=== PATIENT | female | born 1990 | race Caucasian/White ===

== ENCOUNTER 2022-11-10 12:43 | Outpatient (CLI) | payer BC, SELFPAY ==
--- NOTE | 2022-11-10 13:00 | CRLHL7_ITS ---
For Patients: As a result of the Cures Act, medical imaging exams and procedure reports are released immediately into your electronic medical record. You may view this report before your referring provider. If you have questions, please contact your health care provider. INDICATION: First trimester scan, establish dates. COMPARISON: None. TECHNIQUE: Real-time mo-scale imaging of the pelvis was performed. FINDINGS: Sonographic imaging demonstrates a single living intrauterine gestation. The embryo demonstrates a regular cardiac rate measuring 171 beats per minute. The embryo`s crown-rump length measurement of 3.1 cm corresponds to a gestational age of 9 weeks 6 days with a sonographic due date of 06.09.23. There is a normal-appearing yolk sac. There are no gross abnormalities noted within the embryo at this early state of development. The gestational sac has a normal appearance. There is no evidence of a perigestational hemorrhage. The amount of fluid within the sac appears appropriate for gestational age. The cervix is closed. The myometrium appears normal. The ovaries are of normal size. Corpus luteal cyst left ovary. There are no suspicious fluid collections noted in the cul-de-sac. IMPRESSION: Normal first trimester OB ultrasound exam. Gestational age calculated at 9 weeks 6 days with a sonographic due date of 06/09/2023. Dictated by Cash Cooper MD @ 11/10/2022 3:25:06 PM (Electronically Signed)
== END 2022-11-10 12:44 | disposition home or self-care (01) ==
LOC: US 12:43
PROVIDERS: PCP Family Medicine; Visit Provider Registered Nurse
DX: Z34.91 Encounter for supervision of normal pregnancy, unspecified, first trimester (principal); Z3A.09 9 weeks gestation of pregnancy
CPT/HCPCS: 76817; 86592; 86703; 86762; 86787; 86803; 86850; 86900; 86901; 87086; 87340; 87491; 87591

== ENCOUNTER 2023-01-26 08:02 | Outpatient (CLI) | payer BC, SELFPAY ==
--- NOTE | 2023-01-26 08:00 | CRLHL7_ITS ---
For Patients: As a result of the Century Cures Act, medical imaging exams and procedure reports are released immediately into your electronic medical record. You may view this report before your referring provider. If you have questions, please contact your health care provider. INDICATION: Evaluate anatomy. COMPARISON: 11/10/2022 TECHNIQUE: Real time mo scale imaging of the fetus was performed as well as color Doppler analysis of the umbilical vessels. FINDINGS: Sonographic imaging demonstrates a single living intrauterine gestation. Fetus demonstrates a regular cardiac rate of 138 beats per minute. Fetus has a breech position. The placenta lies posteriorly without evidence of placenta previa. The placental edge is located 6.8 cm from the internal cervical os. Amniotic fluid volume appears normal. Single deepest vertical pocket: 3.3 cm. The cervix is closed and measures 4.0 cm in length. The composite ultrasound gestational age is calculated at 20 weeks 2 days with an estimated sonographic due date of 06/13/2023. The estimated weight is 353 grams which lies at the 37th %. The following biometric measurements were obtained: Biparietal diameter: 4.5 cm/19 weeks 4 days 14th% Head circumference: 17.3 cm/19 weeks 6 days 14th% Abdominal circumference: 15.4 cm/20 weeks 4 days 43rd% Femur length: 3.3 cm/20 weeks 3 days 38th% The HC/AC ratio measures: 1.13 range (1.07-1.25) On anatomic survey, there is a normal appearance of the cerebral ventricles, cisterna magna and cerebellum. The cavum septum pellucidum is likely normal although there may be an et vergae variant. A small amount of fluid adjacent to the interhemispheric falx may be present which is considered indeterminate. The nose, lips, and facial profile appear normal. The cervical, thoracic and lumbar spine are well visualized and appear normal. There is a normal four-chamber heart view and the left and right ventricular outflow tracts appear normal. The diaphragm and stomach appear normal. The bladder is normal. Bilateral pelviectasis noted measuring 4.6 millimeters the left and 4.1 millimeters on the right. There is a normal three-vessel cord and cord insertion site. The four extremities appear normal. IMPRESSION: Normal OB ultrasound exam with concordance of clinical and sonographic dating. Mild bilateral renal pelviectasis measuring 4.6 millimeters and 4.1 millimeters. Possible fluid about the intrahemispheric fissure, indeterminate. Maternal medicine consult recommended. Remainder of the anatomic survey unremarkable. Dictated by Cash Cooper MD @ 01/26/2023 11:18:11 AM (Electronically Signed)
== END 2023-01-26 08:03 | disposition home or self-care (01) ==
LOC: US 08:03
PROVIDERS: PCP Family Medicine; Visit Provider Registered Nurse
DX: Z34.92 Encounter for supervision of normal pregnancy, unspecified, second trimester (principal); Z3A.19 19 weeks gestation of pregnancy
CPT/HCPCS: 76805

== ENCOUNTER 2023-01-31 14:09 | Outpatient (CLI) | payer BC, SELFPAY | END 2023-01-31 14:10 | disposition home or self-care (01) | PROVIDERS: PCP Family Medicine; Visit Provider Pediatrics Neonatal-Perinatal Medicine | DX: Z34.92 Encounter for supervision of normal pregnancy, unspecified, second trimester (principal); Z3A.21 21 weeks gestation of pregnancy | CPT/HCPCS: 76816 ==

== ENCOUNTER 2023-04-02 11:11 | Outpatient (CLI) | payer BC, SELFPAY ==
--- NOTE | 2023-04-02 11:00 | CRLHL7_ITS ---
For Patients: As a result of the Cures Act, medical imaging exams and procedure reports are released immediately into your electronic medical record. You may view this report before your referring provider. If you have questions, please contact your health care provider. INDICATION: MEASURING SMALL FOR DATES TECHNIQUE: Real time mo scale imaging of the fetus was performed as well as color Doppler and spectral Doppler analysis of the umbilical artery. COMPARISON: 03/02/2023 FINDINGS: Sonographic imaging demonstrates a single living intrauterine gestation. Fetus demonstrates a regular cardiac rate of 134 beats per minute. Fetus has a vertex position. The placenta lies fundal/posterior. Amniotic fluid volume appears normal and there is a single deepest pocket of 4.5 cm. The estimated weight is 1186gm which lies at the less than 3rd %.On the prior OB ultrasound dated 01/26/2023 the estimated weight was at the 37th percentile. BPD less than 3rd percentile. HC 3rd percentile. AC 14th percentile. FL less than 3rd percentile. There is adequate diastolic blood flow within the umbilical artery. The S/D ratio measures 2.7. The fetus was active. Absent breathing movements. There was normal flexion and extension of the trunk and extremities. IMPRESSION: Biophysical profile 03/29. Sonographic gestational age 28 weeks 2 days and sonographic due date 06/23/2023. Sonographic age is 12 days behind the clinical age. Estimated weight less than 3rd percentile. Abdominal circumference 14th percentile. BPD and FL less than 3rd percentile. HC 3rd percentile. Dictated by Cash Cooper MD @ 04/02/2023 12:42:03 PM (Electronically Signed)
== END 2023-04-02 11:12 | disposition home or self-care (01) ==
PROVIDERS: PCP Family Medicine; Visit Provider Obstetrics & Gynecology
DX: O36.5930 Maternal care for other known or suspected poor fetal growth, third trimester, not applicable or unspecified (principal); Z3A.28 28 weeks gestation of pregnancy
CPT/HCPCS: 76816; 76819; 76820; 82951; 82952

== ENCOUNTER 2023-04-16 13:53 | Outpatient (CLI) | payer BC, SELFPAY ==
--- NOTE | 2023-04-16 14:00 | CRLHL7_ITS ---
For Patients: As a result of the Century Cures Act, medical imaging exams and procedure reports are released immediately into your electronic medical record. You may view this report before your referring provider. If you have questions, please contact your health care provider. INDICATION: Small for gestational age COMPARISON: 04/02/2023 TECHNIQUE: Real time mo scale imaging of the fetus was performed as well as color Doppler and spectral Doppler analysis of the umbilical artery. Without non-stress testing. FINDINGS: Sonographic imaging demonstrates a single living intrauterine gestation. Fetus demonstrates a regular cardiac rate of 139 beats per minute. Fetus has a vertex position. The umbilical artery demonstrates adequate diastolic blood flow. The S/D ratio measures 2.7. The amniotic fluid volume appears normal and there is a single deepest pocket measurement of 4.5 cm. The fetus was active and demonstrated normal breathing movements. There was normal flexion and extension of the trunk and extremities. IMPRESSION: Normal biophysical profile score of 8 out of 8. Dictated by Cash Cooper MD @ 04/17/2023 10:58:47 AM (Electronically Signed)
== END 2023-04-16 13:54 | disposition home or self-care (01) ==
PROVIDERS: PCP Family Medicine; Visit Provider Obstetrics & Gynecology
DX: O36.5990 Maternal care for other known or suspected poor fetal growth, unspecified trimester, not applicable or unspecified (principal)
CPT/HCPCS: 76819; 76820

== ENCOUNTER 2023-04-19 15:51 | Outpatient (CLI) | payer BC, SELFPAY ==
--- NOTE | 2023-04-19 15:47 | CRLHL7_ITS ---
For Patients: As a result of the Cures Act, medical imaging exams and procedure reports are released immediately into your electronic medical record. You may view this report before your referring provider. If you have questions, please contact your health care provider. INDICATION: Small for gestational age. Failed nonstress test. COMPARISON: Biophysical profile from 04/16/2023. FINDINGS: Transabdominal examination of the is performed. A single intrauterine gestation is seen in cephalic presentation with regular cardiac activity at 144 beats per minute. The placenta is posterior and is free of the cervical os. The placental grade is I and the amniotic fluid volume is normal. The DVP is normal at 4.0 cm, not significantly changed from the previous study. The biophysical profile score is 8/8 with no points off. The umbilical artery Doppler ratio is normal at 2.9. IMPRESSION: Single intrauterine gestation in cephalic presentation with regular cardiac activity. Normal DVP at 4.0 cm, unchanged from the previous study. Normal biophysical profile score of 8/8. Dictated by Landon Beal MD @ 04/19/2023 5:08:48 PM (Electronically Signed)
== END 2023-04-19 15:52 | disposition home or self-care (01) ==
LOC: US 15:52
PROVIDERS: PCP Family Medicine; Visit Provider Obstetrics & Gynecology
DX: O36.5930 Maternal care for other known or suspected poor fetal growth, third trimester, not applicable or unspecified (principal); Z3A.32 32 weeks gestation of pregnancy
CPT/HCPCS: 76819; 76820

== ENCOUNTER 2023-04-23 13:58 | Outpatient (CLI) | payer BC, SELFPAY ==
--- NOTE | 2023-04-23 14:00 | CRLHL7_ITS ---
For Patients: As a result of the Century Cures Act, medical imaging exams and procedure reports are released immediately into your electronic medical record. You may view this report before your referring provider. If you have questions, please contact your health care provider. INDICATION: Small for gestational age COMPARISON: 04/19/2023 TECHNIQUE: Real time mo scale imaging of the fetus was performed as well as color Doppler and spectral Doppler analysis of the umbilical artery. Without non-stress testing. FINDINGS: Sonographic imaging demonstrates a single living intrauterine gestation. Fetus demonstrates a regular cardiac rate of 125 beats per minute. Fetus has a vertex position. The umbilical artery demonstrates adequate diastolic blood flow. The S/D ratio measures 2.5. The amniotic fluid volume appears normal and there is a single deepest pocket measurement of 4.7 cm. The fetus was active and demonstrated normal breathing movements. There was normal flexion and extension of the trunk and extremities. IMPRESSION: Normal biophysical profile score of 8 out of 8. Dictated by Cash Cooper MD @ 04/23/2023 3:28:48 PM (Electronically Signed)
== END 2023-04-23 13:59 | disposition home or self-care (01) ==
LOC: US 13:58
PROVIDERS: PCP Family Medicine; Visit Provider Obstetrics & Gynecology
DX: O36.5990 Maternal care for other known or suspected poor fetal growth, unspecified trimester, not applicable or unspecified (principal)
CPT/HCPCS: 76819; 76820

== ENCOUNTER 2023-05-07 09:06 | Outpatient (CLI) | payer BC, SELFPAY ==
--- NOTE | 2023-05-07 09:15 | CRLHL7_ITS ---
For Patients: As a result of the Cures Act, medical imaging exams and procedure reports are released immediately into your electronic medical record. You may view this report before your referring provider. If you have questions, please contact your health care provider. INDICATION: Small for gestational age. TECHNIQUE: Real-time mo scale imaging of the fetus was performed as well as color Doppler and spectral Doppler analysis of the umbilical artery. Without nonstress testing. COMPARISON: April 23, 2023. April 02, 2023. FINDINGS: Single living intrauterine in vertex presentation. Posterior placenta. heart rate 140 beats per minute. Normal amniotic fluid. Single deepest pocket measurement 4.0 cm. Biophysical profile score 8/8 with 2 points given each for breathing, movement, tone, and amniotic fluid. The umbilical artery systolic to diastolic ratio is 2.3 which is within normal limits. Biparietal diameter 8.2 cm, 33 weeks 1 day, 8th percentile. Head circumference 30.1 cm, 33 weeks 3 days, less than the 3rd percentile. Abdominal circumference 27.8 cm, 31 weeks 6 days, less than the 3rd percentile. Femur length 6.0 cm, 31 weeks 1 day, less than the 3rd percentile. Composite calculated ultrasound age 32 weeks 3 days with a sonographic due date of June 29, 2023. This is delayed by 2-1/2 weeks when compared with the age based on the last menstrual period provided. The estimated weight of 1858 g is less than the 3rd percentile. IMPRESSION: 1. Single living intrauterine in vertex presentation. 2. Biometric indices indicating the patient is small for dates similar when compared to the prior ultrasound April 02, 2023. 3. Biophysical profile score 8/8. 4. Normal umbilical artery systolic to diastolic ratio. Dictated by Casa Ariza MD @ 05/07/2023 10:36:28 AM (Electronically Signed)
== END 2023-05-07 09:07 | disposition home or self-care (01) ==
LOC: US 09:07
PROVIDERS: PCP Family Medicine; Visit Provider Obstetrics & Gynecology
DX: O36.5930 Maternal care for other known or suspected poor fetal growth, third trimester, not applicable or unspecified (principal); Z3A.33 33 weeks gestation of pregnancy
CPT/HCPCS: 76819; 76820

== ENCOUNTER 2023-05-14 13:58 | Outpatient (CLI) | payer BC, SELFPAY ==
--- NOTE | 2023-05-14 14:00 | CRLHL7_ITS ---
For Patients: As a result of the Century Cures Act, medical imaging exams and procedure reports are released immediately into your electronic medical record. You may view this report before your referring provider. If you have questions, please contact your health care provider. INDICATION: Severe growth restriction COMPARISON: 05/07/2023 TECHNIQUE: Real time mo scale imaging of the fetus was performed as well as color Doppler and spectral Doppler analysis of the umbilical artery. Without non-stress testing. FINDINGS: Sonographic imaging demonstrates a single living intrauterine gestation. Fetus demonstrates a regular cardiac rate of 145 beats per minute. Fetus has a vertex position. The umbilical artery demonstrates adequate diastolic blood flow. The S/D ratio measures 2.5. The amniotic fluid volume appears normal and there is a single deepest pocket measurement of 5.1 cm. The fetus was active and demonstrated normal breathing movements. There was normal flexion and extension of the trunk and extremities. IMPRESSION: Normal biophysical profile score of 8 out of 8. Dictated by Cash Cooper MD @ 05/14/2023 4:11:56 PM (Electronically Signed)
== END 2023-05-14 13:59 | disposition home or self-care (01) ==
LOC: US 13:59
PROVIDERS: PCP Family Medicine; Visit Provider Obstetrics & Gynecology
DX: O36.5990 Maternal care for other known or suspected poor fetal growth, unspecified trimester, not applicable or unspecified (principal)
CPT/HCPCS: 76819; 76820; 87081; 87653

== ENCOUNTER 2023-05-18 13:27 | Inpatient (IN) | payer BC, SELFPAY ==
[2023-05-18] VITALS (7 sets, daily range): BP systolic 113–140; BP diastolic 81–84; PULSE 72–103; RESP 16; TEMP 36.7–37.1; O2SAT 96; BMI 24.0
--- NOTE | 2023-05-18 12:10 | CRLHL7_ITS ---
For Patients: As a result of the Century Cures Act, medical imaging exams and procedure reports are released immediately into your electronic medical record. You may view this report before your referring provider. If you have questions, please contact your health care provider. INDICATION: Intrauterine growth restriction with concerning heart tracing TECHNIQUE: Ultrasound OB pelvis transabdominal. Real-time mo-scale imaging of the fetus was performed with color Doppler and spectral Doppler analysis of the umbilical artery without stress testing. COMPARISON: Obstetric ultrasound 05/14/2023 FINDINGS: Sonographic imaging demonstrates a single living intrauterine gestation. Fetus demonstrates a regular cardiac rate of 161 beats per minute. Fetus has a cephalic orientation. The placenta lies posterior. Amniotic fluid volume appears normal with a MVP of 4.3 cm. motion, and tone were all observed. breathing was not observed, see comments below. IMPRESSION: 1. Single live intrauterine gestation in vertex position. 2. Normal amniotic fluid. 3. Biophysical profile score of 6 out of 8. Note that this score may be factitiously low as only 4 minutes of imaging is documented and a complete biophysical profile requires 30 minutes of monitoring. Dictated by Eitan Maddox MD @ 05/18/2023 3:50:37 PM (Electronically Signed)
--- NOTE | 2023-05-18 16:40 | W.PM.LDBA ---
Subjective History of Present Illness Time Seen by Provider: 16:40 Date Seen: 05/18/23 Narrative: Meredith is being admitted to Labor and Delivery for medical induction of labor. She is a 33 year old at 36w4d gestation. Her full history and physical was dictated by Dr. Horn on 05/14/23. Please see this for details. Meredith was seen for her care today by Dr. Lynn and noted to have a deep variable deceleration while on NST. She is receiving increased surveillance due to growth restriction less than the 3rd percentile. She was admitted to triage for prolonged monitoring. BPP was ordered and it was 6/8 (-2 off for breathing). Prolonged NST was overall reassuring, there was a couple of variables and one late deceleration. Discussed with her the findings that there's evidence of some stress/compromised. I recommended starting her IOL today as opposed to waiting until Sunday due to nonreassuring surveillance. Patient agrees with the plan. Patient denies vaginal bleeding, or leakage of fluid. Minimal contractions. She also denies SHELBY, n/v, RUQ pain, or visual abnormalities Endorses normal movement. OB - Problem Based A/P Additional Plan (1) growth restriction antepartum: Status: Acute (2) : Status: Acute (3) HSV (herpes simplex virus) anogenital infection: Status: Acute Plan Induction ? SVE /-3 ? [facility] irregular contractions ? will admit due to nonreassuring surveillance in the setting of severe growth restriction ? Pain management plan: Per patient ? Cook place at 1630 without complication. Patient tolerated the procedure well OB Exam Physical Exam Vital signs: Pulse BP Pulse Ox 84 125/84 96 05/18/23 14:36 05/18/23 14:36 05/18/23 14:33 Narrative: Physical exam: General: No acute distress Psych: Alert and oriented x3, full affect HEENT: Normocephalic, atraumatic Lungs: Unlabored breathing Neuro: No focal deficit. Mentating appropriately Pelvic exam: /-3, intact membrane. Cephalic.
[2023-05-18 20:47] LABS: Basophils Absolute Auto 0.02 K/uL (0.00-0.30); Basophils Percent Auto 0.2 % (0.0-3.0); Eosinophils Absolute Auto 0.06 K/uL (0.00-0.50); Eosinophils Percent Auto 0.6 % (0.0-7.0); Hematocrit 38.1 % (33.0-51.0); Hemoglobin* 12.8 gm/dL (12.0-16.0); Immature Granulocytes Pct Auto 0.9 %; Lymphocytes Absolute Auto 2.36 K/uL (0.90-2.90); Lymphocytes Percent Auto 22.4 % (20-44); Mean Corpuscular HGB Conc 34 gm/dL (32-36); Mean Corpuscular Hemoglobin 30 pg (26-34); Mean Corpuscular Volume 90 fL (80-100); Monocytes Percent Auto 12.7 % (0.0-11.0); Neutrophils Absolute Auto 6.67 K/uL (1.7-7.0); Neutrophils Percent Auto 63.2 % (42.0-72.0); Platelet Count* 233 K/uL (140-440); RDW Coefficient of Variation % 12.8 % (11.5-15.5); Red Blood Count 4.25 m/uL (4.00-5.20); White Blood Count* 10.55 K/uL (4.50-11.00)
[2023-05-18 20:49] LABS: Slide Review Reflex No
[2023-05-18] MEDS: ACYCLOVIR 400 MG TAB PO (21:30)
[2023-05-18] MEDS: LACTATED RINGERS 1000 ML 1,000 ML 124 ML IV (23:51)
[2023-05-18] MEDS: OXYTOCIN 30 unit/500 ML in NS 30 UNIT/500 ML BAG IVPB (23:58)
[2023-05-19] VITALS (37 sets, daily range): BP systolic 85–140; BP diastolic 54–87; PULSE 57–245; RESP 16–18; TEMP 36.6–36.8; O2SAT 81–100
--- NOTE | 2023-05-19 03:20 | PC.NURSE ---
Spoke with Remote [facility] to verify 10 mg IM dose in carpujet syringe vs vial. Given NDC number from syringe. Verified ok to use IM vs IV as stated on eleanorujeaydee. Kellen Gomez RNC
[2023-05-19] MEDS: hydrOXYzine pamoate 25 MG CAPSULE 100 MG PO (03:25)
[2023-05-19] MEDS: MORPHINE 10 MG/ML inj IM (03:25)
--- NOTE | 2023-05-19 06:11 | P.OBPN_ITS ---
Subjective Time Seen by Provider: 06:11 Date Seen: 05/19/23 Objective Vital Signs: Last Vital Signs Temp 98.1 F 05/19/23 02:00 Pulse 79 05/19/23 06:02 Resp 16 05/19/23 02:00 BP 135/81 05/19/23 06:02 Pulse Ox 96 05/18/23 14:33 Pelvic Exam Dilation (cm): 4 Effacement (%): 90 Station: 0 Contractions Monitor mode: External Contraction Frequency: Q2 Contraction pattern: Regular Contraction intensity: Moderate Assessment Heart Rate Baseline: 130 Residential Variability: Moderate (6-25) Monitor Accelerations: Present Monitor Decelerations: Variable Tracing Comments: Rare variables Plan Plan: - Patient requesting epidural. Anesthesia team called - Plan: continue titrating Pitocin and AROM after epidural
[2023-05-19] MEDS: fentaNYL 100 MCG/2 ML inj IVP (06:21)
[2023-05-19] MEDS: fentaNYL 250 MCG/5 ML inj 100 MCG EPIDURAL (06:46)
[2023-05-19] MEDS: ROPIVACAINE 0.2% 100 ml 100 ML 12 MG EPIDURAL (06:49)
--- NOTE | 2023-05-19 07:00 | P.ANBPRC_ITS ---
[facility] Medical History (Updated 05/14/23 @ 15:25 by Saumya Horn MD) Tobacco use (12/06/11) ?Z72.0 - Tobacco use (ICD-10) Depression (12/06/11) ?F32.A - Depression, unspecified (ICD-10) Anxiety (12/06/11) ?F41.9 - Anxiety disorder, unspecified (ICD-10) HSV (herpes simplex virus) anogenital infection ?A60.9 - Anogenital herpesviral infection, unspecified (ICD-10) growth restriction Delivery normal ?O80 - Encounter for full-term uncomplicated delivery (ICD-10) Surgical History (Updated 11/10/22 @ 15:03 by Joyce Fagan CNP) History of placement of ear tubes ?Z96.22 - Myringotomy tube(s) status (ICD-10) [place] teeth extracted (12/06/11) ?K08.409 - Partial loss of teeth, unspecified cause, unspecified class (ICD- 10) Family History (Updated 05/14/23 @ 15:26 by Saumya Horn MD) Father High blood pressure Hodgkin lymphoma Social History What is your current living situation?: I presently have a place to live Problems where you live: no known problems In the past 12 months, utilities in danger of being shut off: no In the past 12 mos, have been you worried that your food would run out before you had money to buy more?: never true In the past 12 mos, the food you bought just didn't last and you didn't have money to buy more?: never true Smoking Status: Former smoker How often does anyone, including family, friends and others, physically hurt you : never How often does anyone, including family, friends and others, insult or talk down to you: never How often does anyone, including family, friends and others, threaten you with harm: never How often does anyone, including family, friends and others, scream or curse at you: never Little interest or pleasure in doing things: several days Feeling down, depressed, or hopeless: not at all Meds Home Medications and Allergies Home Medications Medication Instructions Recorded Confirmed Type prenat.vits,timoteo,sgl-tuev-wyxdb 1 tab PO QDAY 11/10/22 05/18/23 History acyclovir 200 mg/5 mL oral 400 mg PO TID 04/02/23 05/18/23 History suspension (Zovirax) Allergies Allergy/AdvReac Type Severity Reaction Status Date / Time No Known Allergies Allergy Unknown Verified 05/18/23 11:09 Results Labs Labs: Laboratory Results - last 24 hr 05/18/23 20:39 WBC 10.55 RBC 4.25 Hgb 12.8 Hct 38.1 MCV 90 MCH 30 MCHC 34 RDW Coeff of Jason 12.8 Plt Count 233 Neut % (Auto) 63.2 Lymph % (Auto) 22.4 [place] % (Auto) 12.7 H Eos % (Auto) 0.6 Baso % (Auto) 0.2 Neut # (Auto) 6.67 Lymph # (Auto) 2.36 [place] # (Auto) 1.30 H Eos # (Auto) 0.06 Baso # (Auto) 0.02 Abs Immat Gran (auto) 0.10 Imm/Tot Granulo (auto) 0.9 Blood Type O Positive Antibody Screen NEGATIVE Vital Signs Vital Signs: Last Vital Signs Temp 98.1 F 05/19/23 02:00 Pulse 64 05/19/23 06:58 Resp 16 05/19/23 02:00 BP 99/61 05/19/23 06:58 Pulse Ox 100 05/19/23 06:55 Weight: 57.606 kg Height: 154.94 cm Anesthesia Procedures Epidural Insertion Patient Location: OB Start Time: 06:15 Stop Time: 07:15 Start Date: 05/19/23 Stop Date: 05/19/23 Reason for Block: primary anesthetic Patient Position: sitting Performed By: Kiran Shaffer Preanesthetic Checklist: IV checked, risks and benefits discussed, surgical consent, monitors and equipment checked, pre-op evaluation, timeout performed and anesthesia consent Prep: chlorhexidine gluconate Monitoring: blood pressure monitoring, environmental monitoring specialist, continuous pulse oximetry and heart rate Approach: midline Vertebral Space: lumbar (1-5) Needle Type: Tuohy needle Injection Technique: continuous catheter Needle gauge: 17 Needle Length (cm): 10 cm Needle Insertion Depth (cm): 6 Catheter Gauge: 19 Catheter Type: multi-orifice Catheter at skin depth (cm): 12 Test Dose Result: negative and lidocaine 1.5% with epinephrine 1 to 200,000 Events: other
[2023-05-19] MEDS: LACTATED RINGERS 1000 ML 1,000 ML 120 ML IV (07:06)
[2023-05-19] MEDS: PHENYLEPHRINE 100 MCG/ML SYRINGE IVP (07:46)
--- NOTE | 2023-05-19 09:20 | W.PM.OBVAGDE ---
OB Procedure Vag Delivery Mother Details Mother Details: The patient is a 33 year-old, 2, Para 1, admitted on 05/18/23 at 36 5/7 weeks gestation. Patient admitted for IOL in the setting of severe IUGR and non reassuring testing. Cook catheter and IV Oxytocin utilized for ripening. This morning upon cervical check she was found 9cm after AROM. : 2 Para: 2 Weeks Gestation: 36.5 Admission Date: 05/18/23 Additional Details Amniotic Membrane Status: AROM Amniotic Membrane Rupture Date: 05/19/23 Amniotic Membrane Rupture Time: 08:17 Amniotic Membrane Fluid Description: Clear Analgesia/Anesthesia Type: Epidural Waterbirth: No Pitcoin: Yes Intrapartal Events: Labor Induction Induction Method: Intracervical balloon catheter and per pitocin protocol Delivery augmentation: rupture of membranes Labor Onset: 06:00 Complete: 08:33 Pushin:34 Heart: heart tones during second stage were category 2. Had a deep deceleration while , asked to push w/o contraction and delivered. Delivery Details Delivery Date: 05/19/23 Delivery Time: 08:42 Route of delivery: Gender: Female Viability: Alive; Heart Rate Present Position at Delivery: OA Delivery Details: Delivered over intact perineum via spontaneous vaginal delivery. was placed on maternal abdomen.? Cord was clamped and cut after a 30-60 second delay. Nose and mouth were bulb suctioned.? Infant weight 4 pounds 5 ounces. 1 Minute Interval Total Score: 8 5 Minute Interval Total Score: 9 Additional Details Shoulder Dystocia: No Placenta Delivery Time: 08:47 Placental Delivery Description: Spontaneous Procedure Done: Global Blood Loss: 50 Laceration: None Episiotomy Description: None Blood Loss Measurement Type: QBL Bakri Used: No Sponge/Need Count Correct: Yes Cord Vessel Description: 3 Vessels (Short cord.) Event Summary Status: Mother and were stable after delivery. Disposition: floor
[2023-05-20 01:26] VITALS: BP 132/84; PULSE 100; RESP 22; TEMP 36.7; O2SAT 99
[2023-05-20 05:05] VITALS: BP 112/87; PULSE 96; RESP 18; TEMP 37; O2SAT 100
[2023-05-20 05:50] LABS: Hemoglobin* 12.3 gm/dL (12.0-16.0)
--- NOTE | 2023-05-20 09:08 | PM.OBDSVD1 ---
DS: Providers Provider Date Seen: 05/20/23 Date of admission: 05/18/23 13:27 Primary care physician: Kevin Bethea MD Admitting Clinician: Velvet Perkins MD Attending Physician on discharge: Aylin Lynn MD Date of Discharge: 05/20/23 DS: Diagnosis Discharge Diagnosis (1) Spontaneous vaginal delivery: Status: Acute Exam Narrative: Exam Narrative: VITAL SIGNS: As noted above. GENERAL APPEARANCE: Alert, cooperative female in no acute distress. MOOD & AFFECT: Normal. ABDOMEN: Soft, non-distended and nontender. Well contracted uterus. : Normal lochia. EXTREMITIES: Nonedematous. Well perfused. Nontender. Const: Vital Signs, click to edit/add: Vital Signs - 24 hr 05/19/23 09:11 05/19/23 09:26 05/19/23 09:41 Temperature Pulse Rate 76 139 H 78 Pulse Rate [Pulse Oximeter] Respiratory Rate Blood Pressure 140/75 H 133/66 139/87 Blood Pressure [Ri ght Arm] Pulse Oximetry Oxygen Delivery Me thod 05/19/23 09:56 05/19/23 10:11 05/19/23 10:26 Temperature Pulse Rate 78 78 153 H Pulse Rate [Pulse Oximeter] Respiratory Rate Blood Pressure 126/70 127/72 118/58 L Blood Pressure [Ri ght Arm] Pulse Oximetry Oxygen Delivery Me thod 05/19/23 10:41 05/19/23 12:59 05/19/23 17:00 Temperature 97.9 F 97.8 F Pulse Rate 77 Pulse Rate [Pulse Oximeter] 87 86 Respiratory Rate 16 16 Blood Pressure 122/79 Blood Pressure [Ri ght Arm] 111/73 126/82 Pulse Oximetry 96 98 Oxygen Delivery Me thod Room Air Room Air 05/19/23 20:16 05/19/23 23:25 05/20/23 01:26 Temperature 97.9 F 98.2 F 98.0 F Pulse Rate Pulse Rate [Pulse Oximeter] 100 68 100 Respiratory Rate 18 16 22 Blood Pressure Blood Pressure [Ri ght Arm] 132/84 125/85 132/84 Pulse Oximetry 99 98 99 Oxygen Delivery Me thod Room Air Room Air Room Air 05/20/23 05:05 Temperature 98.6 F Pulse Rate Pulse Rate [Pulse Oximeter] 96 Respiratory Rate 18 Blood Pressure Blood Pressure [Ri ght Arm] 112/87 Pulse Oximetry 100 Oxygen Delivery Me thod Room Air OB - DS: Summary Hospital Course Hospital Course: The patient is a 33 year old G 2 P 2002 at 36 5/7 weeks gestation that was admitted to the Center on 05/18/23 for IOL due to severe IUGR and non reassuring testing. She had an uncomplicated vaginal delivery. She delivered a viable female . She is bottle feeding. the patient has done well. Patient had 2 non severe elevated blood pressure more than 4 hours apart, no FAMILY PRACTICE PHYSICIAN irritability symptoms such as headache, visual changes or pain in the upper abdomen. Patient is requesting discharge as baby needs to be transferred to [facility] in [place] due to persistent requirements for oxygen. Peripartum Data Infant delivery method: Vaginal Laceration description: None Episiotomy description: None complications: none Russell Infant Gender: Female Infant Discharge Plan: Transferred to [facility] higher level of care Status at Discharge Functional status at discharge: independent ambulation Overall status at discharge: patient is progressing back to baseline Time Spent with Patient Time attestation: Total time spent providing and/or coordinating discharge services: Time spent: Less than 30 minutes Discharge Plan Discharge Disposition: Home, Self-Care Date of Admission: 05/18/23 13:27 Attending Provider on Discharge: Aylin Lynn Primary Care Provider: Kevin Bethea Condition: Stable Anticipated Discharge Date/Time: 05/20/23 09:07 Discharge Medications: New acetaminophen 500 mg Tablet 1,000 mg PO Q6H PRNQty: 15 0RF ibuprofen 600 mg Tablet 600 mg PO Q6H PRNQty: 30 0RF Continued prenat.vits,timoteo,ocz-icrc-pptou Tablet 1 tab PO QDAY Discontinued acyclovir [Zovirax] 200 mg/5 mL suspension 400 mg PO TID acyclovir 400 mg tablet 400 mg PO TID 30 Days Qty: 90 0RF betamethasone acet,sod phos [Celestone Soluspan] 6 mg/mL suspension 12 mg IM ONCE Qty: 2 0RF Discharge Orders: Discharge Order (Routine); Ordered 05/20/23 Ordered By: Aylin Lynn Patient Education: Preeclampsia and Eclampsia After Delivery (GEN), OB Vaginal/Bottle Feeding Additional Instructions: Recommend to monitor blood pressures at least daily, notify clinic if there are persistently elevated blood pressures more than 140 systolic or 90 diastolic. Notify clinic if there is headache that does not go away with Tylenol, visual changes like dark spots or vision loss, pain in the upper abdomen. Recommend a clinic follow up in 3-5 days for blood pressure check. Activity Level: Activity as Tolerated Activity Detail: Nothing vaginally for 6 weeks Discharge Diet: Regular Follow Up Appointments: Kevin Bethea MD [Primary Care Provider] - Forms: Mir Vracha Info Instructions
[2023-05-20 09:22] VITALS: BP 128/84; PULSE 81; RESP 18; TEMP 37.3; O2SAT 96
[2023-05-20 09:54] LABS: Creatinine* 0.5 mg/dL (0.5-1.5); Est. Creatinine Clearance* 120.76
[2023-05-20 09:55] LABS: Alanine Aminotransferase* 15 U/L (4-35); Aspartate Amino Transferase* 21 U/L (12-35); Blood Urea Nitrogen* 9 mg/dL (5-24); Estimated Glomerular Filt Rate 127 ml/min
[2023-05-20 10:05] LABS: Hematocrit 36.8 % (33.0-51.0); Mean Corpuscular HGB Conc 34 gm/dL (32-36); Mean Corpuscular Hemoglobin 30 pg (26-34); Mean Corpuscular Volume 90 fL (80-100); Platelet Count* 226 K/uL (140-440); Red Blood Count 4.08 m/uL (4.00-5.20)
[2023-05-20 10:16] LABS: Slide Review Reflex No
== END 2023-05-20 10:45 | disposition home or self-care (01) | DRG 560 ==
LOC: OB OUT 13:27 → OB 13:27
PROVIDERS: Obstetrics & Gynecology; Admitting Provider Obstetrics & Gynecology; PCP Family Medicine; Visit Provider Obstetrics & Gynecology
DX: O76 Abnormality in fetal heart rate and rhythm complicating labor and delivery (principal); O36.5930 Maternal care for other known or suspected poor fetal growth, third trimester, not applicable or unspecified; O16.5 Unspecified maternal hypertension, complicating the puerperium; O98.32 Other infections with a predominantly sexual mode of transmission complicating childbirth; A60.00 Herpesviral infection of urogenital system, unspecified; O99.344 Other mental disorders complicating childbirth; F32.A Depression, unspecified; F41.9 Anxiety disorder, unspecified; Z3A.36 36 weeks gestation of pregnancy; Z37.0 Single live birth
CPT/HCPCS: 01967; 36415; 59200; 76819; 76820; 82565; 84450; 84460; 84520; 85018; 85025; 85027; 86850; 86900; 86901; 88307; A9270; J2270; J2371; J2795; J3010; J7120

== ENCOUNTER 2023-09-20 08:59 | Day surgery (SDC) | payer BC, SELFPAY ==
[2023-09-20] VITALS (7 sets, daily range): BP systolic 101–120; BP diastolic 61–86; PULSE 73–90; RESP 14–16; TEMP 36.5–36.8; O2SAT 95–100; BMI 21.2
[2023-09-20] MEDS: LACTATED RINGERS 1000 ML 1,000 ML 100 ML IV (10:00)
[2023-09-20] MEDS: SODIUM CHLORIDE 0.9 % (FLUSH) 10 ML SYRINGE IVF (10:00)
--- NOTE | 2023-09-20 10:15 | CRLHL7_ITS ---
For Patients: As a result of the Century Cures Act, medical imaging exams and procedure reports are released immediately into your electronic medical record. You may view this report before your referring provider. If you have questions, please contact your health care provider. ULTRASOUND-GUIDED RIGHT BREAST WIRE LOCALIZATION INDICATION: 33-year-old female. Palpable mass mid lateral RIGHT breast 9 o`clock position 8 cm from the nipple. A previous RIGHT breast ultrasound 03/02/2023 demonstrated a 2.8 x 0.9 x 2.6 cm hypoechoic well-circumscribed oval-shaped mass presumably a fibroadenoma. Ultrasound-guided wire localization prior to surgical excision. PROCEDURE: Informed consent was obtained. Benefits and risks were discussed. The patient agreed to proceed. Washburn protocol was followed. TIME-OUT conducted just prior to starting procedure confirmed patient identity, site/side, procedure, patient position, and availability of correct equipment. Pause for cause was performed. Utilizing sterile technique and 1 percent lidocaine for local anesthetic, a 7 cm Kopans needle wire combination was advanced under ultrasound guidance through the nodule at the 9 o`clock position 8 cm from the nipple. The wire was passed through the length of the nodule but not beyond it. No post procedure mammogram was required or requested. No immediate complications. IMPRESSION: Technically successful ultrasound-guided wire localization of a hypoechoic oval-shaped 2.8 x 0.9 x 2.6 cm mass. No immediate complications. ACR not applicable Dictated by: Casa Ariza MD @09/20/2023 11:10:25 AM jj/Dictated by: Casa Ariza MD @ 09/20/2023 11:10:00 AM (Electronically Signed)
[2023-09-20 10:28] LABS: Ur HCG Qualitative* Negative (Negative)
[2023-09-20] MEDS: CEFAZOLIN 2 GM INJ IVP (11:16)
[2023-09-20] MEDS: LIDOCAINE 1% MDV 20 ML INJECTION (11:23)
[2023-09-20] MEDS: BUPIVACAINE 0.25% 30 ML INJECTION (11:23)
--- NOTE | 2023-09-20 12:25 | W.PM.H&PU ---
History & Physical Update History & Physical Update H&P Reviewed and patient assessed: No changes noted
--- NOTE | 2023-09-20 12:25 | PM.GSPRC ---
Operative Note Pre-op diagnosis: Fibroadenoma, right breast Post-op diagnosis: Same Type of Procedure: Lumpectomy, right breast Indications: Patient is a 33-year-old female with a mass of the right breast. Ultrasound characteristics are consistent with a fibroadenoma. Patient does report symptoms associated with the mass, as well as anxiety. Different treatment options were reviewed including short period of observation versus excision in the operating room. Risks and benefits of operative intervention were discussed at length with the patient. Risks included but was not limited to: Bleeding, infection, risk of damage to surrounding structures, possible need for additional procedures and postoperative complications such as pneumonia, pulmonary emboli or NC. All questions and concerns were addressed with the patient agreeing to proceed. Procedure Description: Prior to arrival in the operating room, the patient was taken to radiology where a wire was placed through the fibroadenoma of the right breast. The patient was then brought to the operating room where anesthesia was induced. The right breast and axilla were prepped and draped in the usual sterile fashion. Timeout was confirmed. Local anesthesia was infiltrated into a transverse incision, and 9:00 a.m. about 8 cm away from the nipple laterally and near the location of the tip of the wire. Using electrocautery, the segment of breast tissue containing the tip of the wire was excised. Since no clip was placed in the specimen no need for radiographic confirmation. The mass was palpated with findings consistent with fibroadenoma. The specimen was then marked with paint for orientation and sent for permanent pathology. The wound was irrigated and all irrigant suctioned from the wound. Additional local anesthesia was infiltrated. The wounds were then closed in layers using absorbable suture, and a Steri-Strip was placed over the wounds. The patient was awakened without incident and taken to PACU in stable condition. Sponge, needle and instrument counts were correct x3 at the termination of the case. Findings: Fibroadenoma of the right breast. Anesthesia: MAC and local Surgeon: Margarita Kee MD Estimated blood loss (mL): 5 Additional Specimen Information: Right breast mass Condition: stable Disposition: same day Date of procedure: 09/20/23
--- NOTE | 2023-09-20 12:41 | W.ANESCHARGE ---
Anesthesia Charges Start Date/Time Anesthesia Start Date: 09/20/23 Anesthesia Start Time: 11:05 Stop Date/Time Anesthesia Stop Date: 09/20/23 Anesthesia Stop Time: 12:10
== END 2023-09-20 13:34 | disposition home or self-care (01) ==
PROVIDERS: Anesthesiology; PCP Family Medicine; Visit Provider Surgery
PROC: (CPT 19120; principal; 2023-09-20 10:30)
DX: D24.1 Benign neoplasm of right breast (principal)
CPT/HCPCS: 19120; 00400; 19285; 81025; 88307; C1769; J0665; J0690; J1100; J2250; J2405; J2704; J3010; J7120

== ENCOUNTER 2024-10-31 13:48 | Outpatient (CLI) | payer BC, SELFPAY ==
--- NOTE | 2024-10-31 14:00 | CRLHL7_ITS ---
For Patients: As a result of the Century Cures Act, medical imaging exams and procedure reports are released immediately into your electronic medical record. You may view this report before your referring provider. If you have questions, please contact your health care provider. INDICATION: Dating COMPARISON: None. TECHNIQUE: Real-time mo-scale imaging of the pelvis was performed. FINDINGS: Sonographic imaging demonstrates a single living intrauterine gestation. The embryo demonstrates a regular cardiac rate measuring 159 beats per minute. BPD 3.3 cm, 16 weeks 2 days, 94th percentile. HC 11.8 cm, 15 weeks 6 days, 78th percentile. HC 9.8 cm, 15 weeks 6 days, 81st percentile. FL 1.7 cm, 15 weeks 0 days, 45th percentile. Estimated weight 73rd percentile. position is breech. Amniotic fluid single deepest pocket 6.3 cm. Placenta is posterior. There is prominence of the placenta with hypoechoic echotexture at the cord insertion. This measures approximately 2.9 x 3.4 cm. IMPRESSION: Single living intrauterine with sonographic gestational age 15 weeks 5 days and sonographic due date of 04/19/2025. Prominence of the placenta at the placental cord insertion suspicious for placental Sheets formation. Attention at anatomic survey recommended. Dictated by Cash Cooper MD @ 10/31/2024 7:51:36 PM (Electronically Signed)
== END 2024-10-31 13:49 | disposition home or self-care (01) ==
LOC: US 13:48
PROVIDERS: PCP Family Medicine; Visit Provider Registered Nurse
DX: Z34.92 Encounter for supervision of normal pregnancy, unspecified, second trimester (principal); O43.192 Other malformation of placenta, second trimester; Z3A.15 15 weeks gestation of pregnancy
CPT/HCPCS: 76815; 83021; 86592; 86703; 86704; 86706; 86762; 86787; 86803; 86850; 86900; 86901; 87086; 87340; 87491; 87591

== ENCOUNTER 2024-11-26 13:59 | Outpatient (CLI) | payer BC, SELFPAY | END 2024-11-26 14:00 | disposition home or self-care (01) | LOC: US 14:00 | PROVIDERS: PCP Family Medicine; Visit Provider Registered Nurse | DX: O09.522 Supervision of elderly multigravida, second trimester (principal); Z3A.18 18 weeks gestation of pregnancy | CPT/HCPCS: 76811 ==

== ENCOUNTER 2025-01-30 08:51 | Outpatient (CLI) | payer BC, SELFPAY ==
--- NOTE | 2025-01-30 09:15 | CRLHL7_ITS ---
For Patients: As a result of the Century Cures Act, medical imaging exams and procedure reports are released immediately into your electronic medical record. You may view this report before your referring provider. If you have questions, please contact your health care provider. OB ULTRASOUND FOLLOWUP LIMITED, 01/30/2025 CLINICAL HISTORY: History of FGR. COMPARISON: 11/26/2024. TECHNIQUE: Real time mo scale imaging of the fetus was performed transabdominal. FINDINGS: NERY by LMP/US: 04/24/2025. GA: 28 weeks 0 days. CERVIX: Not visualized. POSITIONING: Vertex. AMNIOTIC FLUID: 4.8 cm, SDP. PLACENTA: Technique: TA. Placenta Position: Posterior. DOPPLERS: Heart Rate: 157 bpm. BIOMETRY: BPD: 7.0 cm, 28 weeks 1 day. 42% HC: 26.1 cm, 28 weeks 2 days. 29% AC: 23.3 cm, 27 weeks 4 days. 31% FL: 4.8 cm, 26 weeks 0 days. Less than 3% FL/AC Ratio: 20.48% HC/AC Ratio: 1.12. EFW: 1034 grams, 2 lb 4 oz. Age this this US: 27 weeks 4 days. NERY by this US: 04/27/2025. Percentile by NERY: 13% IMPRESSION: Single live intrauterine gestation at 27 weeks 4 days. NERY 04/27/2025. Estimated weight 1034 grams which lies at the 13th percentile. Femur length is at 4.7 cm, less than 3rd percentile. Shirley Hernandez M.D. Diagnostic/Breast Radiologist [email or web address] Transcribed: 1:11 pm DW/Dictated by: Shirley Hernandez MD @ 01/30/2025 12:57:00 PM (Electronically Signed)
== END 2025-01-30 08:52 | disposition home or self-care (01) ==
LOC: US 08:51
PROVIDERS: PCP Family Medicine; Visit Provider Obstetrics & Gynecology
DX: O09.523 Supervision of elderly multigravida, third trimester (principal); Z3A.28 28 weeks gestation of pregnancy
CPT/HCPCS: 76816; 86592

== ENCOUNTER 2025-03-13 09:10 | Outpatient (CLI) | payer BC, SELFPAY ==
--- NOTE | 2025-03-13 09:15 | CRLHL7_ITS ---
For Patients: As a result of the Century Cures Act, medical imaging exams and procedure reports are released immediately into your electronic medical record. You may view this report before your referring provider. If you have questions, please contact your health care provider. OB ULTRASOUND BIOPHYSICAL PROFILE, 03/13/2025 CLINICAL HISTORY: History of FGR. COMPARISON: 01/30/2025. TECHNIQUE: Real time mo scale imaging of the fetus was performed. Transabdominal imaging performed. FINDINGS: LMP: 07/18/2024. NERY by LMP: 04/24/2025. GA: 34 weeks 0 days. GESTATION: Single. CERVIX: Not visualized. POSITIONING: Vertex. AMNIOTIC FLUID: 5.4 cm SDP. PLACENTA: Technique: TA. Placenta Position: Fundal, left wall. DOPPLERS: Heart Rate: 148 bpm. Umbilical Artery: 3.4 S/D. BIOPHYSICAL PROFILE: Gross Body Movements: 2 Tone: 2 Respiratory Activity: 2 Amniotic Fluid: 2 Total Score: 8/8 BIOMETRY: BPD: 8.2 cm, 33 weeks 1 day. 22.5% HC: 29.1 cm, 32 weeks 0 days. <3% AC: 28.9 cm, 32 weeks 6 days. 23% FL: 5.9 cm, 30 weeks 5 days. <3% FL/AC Ratio: 20.29% HC/AC: 1.01. EFW: 1918 grams, 4 lb 4 oz. Age by this US: 32 weeks 1 day. NERY by this US: 05/07/2025. Percentile by NERY: 6.4% IMPRESSION: 1. Normal biophysical profile 05/29. 2. Sonographic gestational age 32 weeks 1 day and sonographic due date 05/07/2025. Sonographic age 13 days behind the clinical age. 3. Estimated weight 60th percentile. Abdominal circumference 23rd percentile. HC and FL less than 3rd percentile. 4. Spectral Doppler evaluation of the umbilical artery performed. S/D ratio 3.4, considered normal. Cash Cooper M.D. Diagnostic Radiologist [email or web address] Transcribed: 2:13 pm DW/Dictated by: Cash Cooper MD @ 03/13/2025 12:59:00 PM (Electronically Signed)
== END 2025-03-13 09:11 | disposition home or self-care (01) ==
LOC: US 09:10
PROVIDERS: PCP Family Medicine; Visit Provider Obstetrics & Gynecology
DX: O36.5930 Maternal care for other known or suspected poor fetal growth, third trimester, not applicable or unspecified (principal); O09.523 Supervision of elderly multigravida, third trimester; Z3A.34 34 weeks gestation of pregnancy
CPT/HCPCS: 76816; 76819; 76820

== ENCOUNTER 2025-03-20 09:10 | Outpatient (CLI) | payer BC, SELFPAY ==
--- NOTE | 2025-03-20 09:15 | CRLHL7_ITS ---
For Patients: As a result of the Cures Act, medical imaging exams and procedure reports are released immediately into your electronic medical record. You may view this report before your referring provider. If you have questions, please contact your health care provider. OB ULTRASOUND NERY by LMP: 04/24/2025. GA: 35 w, 0 d. Single. Comparison: 03/13/2025, 01/30/2025, 11/26/2024. INDICATION: IUGR. TECHNIQUE: Real time grayscale imaging of the fetus was performed. Transabdominal. CERVIX: Not visualized. POSITIONING: Vertex. AMNIOTIC FLUID: 4.8 cm. SDP (N: greater than 2 x 1 cm) PLACENTA: Technique: Transabdominal. PLACENTA POSITION: Fundal, left wall. DOPPLER: heart rate: 139 bpm. Umbilical artery: 3.8 S/D. Greater than 34 we = less than 3.5. IMPRESSION: Spectral Doppler evaluation of the umbilical artery performed with transabdominal approach. S/D ratio is 3.8 which is considered elevated at this gestational age. Cash Cooper M.D. Diagnostic Radiologist [email or web address] MADHAV/mady earl/Dictated by: Cash Cooper MD @ 03/20/2025 10:32:00 AM (Electronically Signed)
== END 2025-03-20 09:11 | disposition home or self-care (01) ==
LOC: US 09:11
PROVIDERS: PCP Family Medicine; Visit Provider Obstetrics & Gynecology
DX: O36.5930 Maternal care for other known or suspected poor fetal growth, third trimester, not applicable or unspecified (principal); Z3A.35 35 weeks gestation of pregnancy
CPT/HCPCS: 76815; 76820

== ENCOUNTER 2025-03-20 10:38 | Outpatient (CLI) | payer BC, SELFPAY ==
[2025-03-21 10:42] LABS: Strep B DNA Probe POSITIVE (Negative)
[2025-03-21 10:55] LABS: Strep B Susceptibility Needed? No
== END 2025-03-20 10:39 | disposition home or self-care (01) ==
LOC: NFLDREF 10:38
PROVIDERS: PCP Family Medicine; Visit Provider Obstetrics & Gynecology
DX: Z34.83 Encounter for supervision of other normal pregnancy, third trimester (principal)
CPT/HCPCS: 87081; 87653

== ENCOUNTER 2025-03-21 15:40 | Outpatient (CLI) | payer BC, SELFPAY ==
[2025-03-21 15:52] VITALS: BP 130/82; PULSE 83
[2025-03-21] MEDS: BETAMETHASONE SOD PHOS/ACETATE 6 MG/ML ML 12 MG IM (15:53)
== END 2025-03-21 16:06 ==
LOC: OB CLI 15:41 → OB 15:43
PROVIDERS: PCP Family Medicine; Visit Provider Obstetrics & Gynecology
DX: O36.5930 Maternal care for other known or suspected poor fetal growth, third trimester, not applicable or unspecified (principal); Z3A.35 35 weeks gestation of pregnancy
CPT/HCPCS: G0463; J0702

== ENCOUNTER 2025-03-25 07:12 | Outpatient (CLI) | payer BC, SELFPAY ==
--- NOTE | 2025-03-25 07:15 | CRLHL7_ITS ---
For Patients: As a result of the Cures Act, medical imaging exams and procedure reports are released immediately into your electronic medical record. You may view this report before your referring provider. If you have questions, please contact your health care provider. OB ULTRASOUND LIMITED WITH DOPPLER NERY by LMP: 04/24/2025. GA: 35 w, 5 d. Comparison: 03/20/2025, 03/13/2025, 01/30/2025. INDICATION: IUGR. TECHNIQUE: Real time mo scale imaging of the fetus was performed. Transabdominal imaging performed. Umbilical artery spectral Doppler evaluation performed. POSITIONING: Vertex. AMNIOTIC FLUID: - cm. 4.1 cm SDP (N: greater than 2 x 1 cm) PLACENTA: Technique: Transabdominal. PLACENTA POSITION: Left wall. DOPPLER: heart rate: 147 bpm. Umbilical artery: 4 S/D. Greater than 34 w = less than 3.5. IMPRESSION: Spectral Doppler evaluation of the umbilical artery performed. Umbilical artery S/D ratio 4.0 which is considered elevated at this gestational age. Cash Cooper M.D. Diagnostic Radiologist [email or web address] SP/Dictated by: Cash Cooper MD @ 03/25/2025 6:57:00 PM (Electronically Signed)
== END 2025-03-25 07:13 | disposition home or self-care (01) ==
LOC: US 07:15
PROVIDERS: Visit Provider Obstetrics & Gynecology
DX: O36.5990 Maternal care for other known or suspected poor fetal growth, unspecified trimester, not applicable or unspecified (principal); Z3A.35 35 weeks gestation of pregnancy
CPT/HCPCS: 76815; 76820

== ENCOUNTER 2025-03-30 07:13 | Outpatient (CLI) | payer BC, SELFPAY ==
--- NOTE | 2025-03-30 07:15 | CRLHL7_ITS ---
For Patients: As a result of the Century Cures Act, medical imaging exams and procedure reports are released immediately into your electronic medical record. You may view this report before your referring provider. If you have questions, please contact your health care provider. OBSTETRICAL ULTRASOUND WITH UA DOPPLER ??? LIMITED, 03/30/2025 INDICATION: IUGR. CLINICAL HISTORY: LMP: 07/18/2024 NERY by LMP: 04/24/2025 Gestational Age: 36 weeks 3 days COMPARISON: 03/25/2025, 03/20/2025, 03/13/2025. TECHNIQUE: Real-time mo-scale transabdominal imaging of the fetus was performed as well as color Doppler analysis of the umbilical vessels. FINDINGS: Fetus: Single Cervix: Not visualized positioning: Vertex Amniotic Fluid: 3.4 cm SDP Placenta technique: Transabdominal Placenta position: Left wall DOPPLERS: heart rate: 138 bpm Umbilical artery: 2.7 S/D; greater than 34 weeks = less than 3.5 IMPRESSION: Umbilical artery spectral Doppler evaluation performed S/D ratio is 2.7. CASH ANGULO M.D. Diagnostic Radiologist [email or web address] Transcribed: 9:[address]/Dictated by: Cash Angulo MD @ 03/31/2025 8:35:00 AM (Electronically Signed)
== END 2025-03-30 07:14 | disposition home or self-care (01) ==
LOC: US 07:14
PROVIDERS: Visit Provider Obstetrics & Gynecology
DX: O36.5930 Maternal care for other known or suspected poor fetal growth, third trimester, not applicable or unspecified (principal); Z3A.36 36 weeks gestation of pregnancy
CPT/HCPCS: 76815; 76820

== ENCOUNTER 2025-04-02 00:34 | Inpatient (IN) | payer BC, SELFPAY ==
[2025-04-01] VITALS (26 sets, daily range): BP systolic 115–142; BP diastolic 72–94; PULSE 62–98; TEMP 36.8; O2SAT 96–99
[2025-04-01] MEDS: ACETAMINOPHEN 500 MG TABLET 1000 MG PO (20:44)
[2025-04-01 20:45] LABS: Hematocrit 37.9 % (33.0-51.0); Hemoglobin* 12.5 gm/dL (12.0-16.0); Mean Corpuscular HGB Conc 33 gm/dL (32-36); Mean Corpuscular Hemoglobin 29 pg (26-34); Mean Corpuscular Volume 88 fL (80-100); Platelet Count* 234 K/uL (140-440); Red Blood Count 4.31 m/uL (4.00-5.20)
[2025-04-01 20:57] LABS: Slide Review Reflex No
[2025-04-01 21:08] LABS: Alanine Aminotransferase* 13 U/L (4-35); Aspartate Amino Transferase* 27 U/L (12-35); Blood Urea Nitrogen* 8 mg/dL (5-24); Creatinine* 0.5 mg/dL (0.5-1.5); Estimated Glomerular Filt Rate 125 ml/min
[2025-04-01 21:28] LABS: Total Protein Urine 12 mg/dL
[2025-04-01 21:29] LABS: Creatinine Urine 29.7 mg/dL
--- NOTE | 2025-04-01 21:41 | PM.OBLDTN ---
OB - Triage/Final Diagnosis Visit Information Narrative: Meredith is a 35yo seen in triage at 36w5d GA for pelvic pressure. is complicated by growth restriction, abnormal dopplers on 2 previous US studies (normalized as of last US), history of pregnancies affected by FGR, history of genital herpes (on acyclovir), AMA and migraines. Meredith noted increased pelvic pressure throughout the day, prompting her triage visit. Contractions were noted to occur every 5-8 minutes, where cervix was 2/50/-2. On arrival, patient was found to be newly hypertensive. She notes onset of her usual migraine-like headache today, has not taken any medication for this. Attempted to take tylenol here, noted she vomited shortly thereafter (which she attributes to trying to take tylenol as she typically avoids medications at home). Declined further treatment with analgesics or antiemetics. Denies vision changes or RUQ pain. No vaginal bleeding or leaking of fluids. Endorses active movement. PreE labs were obtained, found to be within normal limits. Plt of 234, Cr 0.5, AST 27, ALT 13, UPCR []. She was monitored in triage for 4 hours, during which her BPs were in the normal to mild range. Repeat cervical exam was []. status was reassuring throughout monitoring period, category 1. She ultimately did [] meet criteria for hypertensive disorder of , as he BP normalized throughout monitoring period. She was discharged to home with close interval follow up in clinic tomorrow. Given her headache was tolerable without treatment, this was not felt to represent a severe feature of HTN disorder of . Discussed strict return precautions for unrelenting SHELBY, vision changes, RUQ pain, regular/painful contractions, vaginal bleeding, leaking of fluids and decreased movement. She has an US with UA dopplers, NST and provider visit with Dr. Oh tomorrow. SBAR provided to Dr. Oh to reassess her BP closely tomorrow. Evaluation Laboratory results: Laboratory Tests 04/01/25 04/01/25 Range/Units Unknown 20:39 WBC 9.00 (4.50-11.00) K/uL RBC 4.31 (4.00-5.20) m/uL Hgb 12.5 (12.0-16.0) gm/dL Hct 37.9 (33.0-51.0) % MCV 88 (80-100) fL MCH 29 (26-34) pg MCHC 33 (32-36) gm/dL Plt Count 234 (140-440) K/uL BUN 8 (5-24) mg/dL Creatinine 0.5 (0.5-1.5) mg/dL Estimated GFR 125 ml/min AST 27 (12-35) U/L ALT 13 (4-35) U/L Urine Creatinine Pending Protein/Creatinin Ratio Pending Urine Total Protein Pending Vital signs: Vital Signs - 24 hr 04/01/25 19:51 04/01/25 19:52 04/01/25 19:57 Temperature 98.2 F Pulse Rate 88 Blood Pressure 142/94 H Pulse Oximetry 98 96 04/01/25 20:02 04/01/25 20:07 04/01/25 20:09 Temperature Pulse Rate Blood Pressure 139/89 Pulse Oximetry 97 98 04/01/25 20:09 04/01/25 20:12 04/01/25 20:17 Temperature Pulse Rate 94 Blood Pressure Pulse Oximetry 98 96 04/01/25 20:22 04/01/25 20:22 04/01/25 20:22 Temperature Pulse Rate 84 Blood Pressure 133/90 H Pulse Oximetry 97 04/01/25 20:27 04/01/25 20:32 04/01/25 20:37 Temperature Pulse Rate Blood Pressure Pulse Oximetry 98 96 99 04/01/25 20:37 04/01/25 20:37 04/01/25 20:42 Temperature Pulse Rate 85 Blood Pressure 138/92 H Pulse Oximetry 98 04/01/25 20:53 04/01/25 20:53 04/01/25 21:10 Temperature Pulse Rate 72 Blood Pressure 134/87 140/72 H Pulse Oximetry 04/01/25 21:10 04/01/25 21:24 04/01/25 21:24 Temperature Pulse Rate 77 76 Blood Pressure 118/79 Pulse Oximetry 04/01/25 21:38 04/01/25 21:38 Temperature Pulse Rate 62 Blood Pressure 115/73 Pulse Oximetry
[2025-04-02] VITALS (60 sets, daily range): BP systolic 110–149; BP diastolic 67–95; PULSE 66–127; RESP 16–22; TEMP 36.5–36.8; O2SAT 79–100; BMI 23.7
--- NOTE | 2025-04-02 00:36 | PM.OBHPLI ---
OB - H&P: HPI Labor/Induction History of Present Illness Date Seen: 04/02/25 Chief complaint: Maternity Narrative: Meredith is a 35yo seen in triage at 36w5d GA for pelvic pressure. is complicated by growth restriction, abnormal dopplers on 2 previous US studies (normalized as of last US), history of pregnancies affected by FGR, history of genital herpes (on acyclovir), AMA and migraines. Meredith noted increased pelvic pressure throughout the day, prompting her triage visit. Contractions were noted to occur every 5-8 minutes, where cervix was 2/50/-2. On arrival, patient was found to be newly hypertensive. She notes onset of her usual migraine-like headache today, has not taken any medication for this. Attempted to take tylenol here, noted she vomited shortly thereafter (which she attributes to trying to take tylenol as she typically avoids medications at home). Declined further treatment with analgesics or antiemetics. Denies vision changes or RUQ pain. No vaginal bleeding or leaking of fluids. Endorses active movement. PreE labs were obtained, found to be within normal limits. Plt of 234, Cr 0.5, AST 27, ALT 13, UPCR 0.4. She was monitored in triage for 4 hours, during which her BPs were in the normal to mild range. Repeat cervical exam was noted to demonstrate cervical change to 3-3.5/50/-2. She noted her contractions became increasingly frequent and painful through monitoring, about every 5 now. status was primarily reassuring throughout monitoring period, category 1. Around 2330 she did have one seemingly early deceleration, than an isolated late deceleration.Category 1 FHR again at present - baselin 130bpm, moderate variability, 15x15 accels present, decelerations absent. She ultimately did meet criteria for hypertensive disorder of , given BP >140/90 across 4 hours. Her headache did improve with rest. Decision was made to admit in the setting of complicated growth restriction, new diagnosis of preE without severe features and spontaneous onset of labor (latent at present). Specific Issues/Plans G 3 P 1-1-0-2 # growth restriction diagnosed at 34 weeks: EFW 6.4%, AC 23%. H/o growth restriction w/ previous pregnancies. 5lb at 37 wks. and 4lb 5oz at 36w5d. Weekly modified BPP (order form filled out) US for growth Q 3 weeks With normal BPP and EFW >3%, delivery 38-39 weeks #Elevated S/D ratio on 03/20 and 03/25 Twice weekly testing BMZ given 03/20- IOL at 37w0d at 04/03 (ripening via cook on 04/02) # H/o genital HSV Start prophylaxis with acyclovir on 03/20 # Advanced Maternal age NIPT: Low risk, female Level 2 US Recommend daily low dose aspirin due to AMA and h/o IUGR #Multiple placental lakes, largest 2.8x2.5x3.2cm at level 2 - Posterior placenta, no previa. No specific risk factors for PAS. - Nothing further recommended in MFM note. # PP elevated BP (2 nonsevere elevated BP readings more than 4 hours apart without INVESTOR RELATIONS ASSOCIATE irritability such as headache, visual changes, or upper abdominal pain # H/o migraines. # H/o tobacco use. Was vaping prior to . Imaging: Level 2 US: 11/26 Normal anatomy. EFW 263g at 57%ile, AC 73%ile. Cx 33mm. Posterior placenta, no previa. Multiple placental lakes. 01/30/2025: Vertex presentation, SDP: 4.8 cm. EFW: 13th percentile, AC: 31 percentile. 03/13/25: cephalic, SDP 5.4, BPP 8/8, normal UA doppler, EFW 6.4%, AC 23%, BPD 22.5%, HC <3%, FL <3%. 03/25: cephalic, FHR 147bpm. S/D ratio of 4, representing elevated UA doppler. Flu: recommended, declined Covid: recommended, declined Tdap: given on 02/26/25 Mental Health: 02/26/25 HGB: 12.1 03/13/25 GBS: positive 03/20/25 H&P: Josh on 03/25 Meds Home Medications and Allergies Home Medications ?Medication ?Instructions ?Recorded ?Confirmed ?Type docosahexaenoic acid 200 mg 200 mg PO DAILY 10/31/24 04/01/25 History capsule ( DHA) acyclovir 400 mg tablet 400 mg PO TID #60 tabs 03/20/25 04/01/25 Rx Allergies Allergy/AdvReac Type Severity Reaction Status Date / Time No Known Allergies Allergy Unknown Verified 03/30/25 08:20 OB - H&P: Exam Physical Exam: Vital signs: Temp Pulse BP Pulse Ox 98.2 F 76 134/88 98 04/01/25 19:52 04/02/25 00:23 04/02/25 00:23 04/01/25 20:42 Narrative: General: Alert and oriented, no acute distress. Changes position and breathes through contractions. Psych: Appropriate mood and affect Abdomen: Gravid. EFW 1918g at 6.4%ile by US on 03/13. Cervix: 3/50/-2 per RN exam OB - Results Labs Labs: Short CBC 04/01/25 Range/Units 20:39 WBC 9.00 (4.50-11.00) K/uL Hgb 12.5 (12.0-16.0) gm/dL Hct 37.9 (33.0-51.0) % Plt Count 234 (140-440) K/uL BMP 04/01/25 20:39 BUN 8 Creatinine 0.5 Liver Function 04/01/25 Range/Units 20:39 AST 27 (12-35) U/L ALT 13 (4-35) U/L OB - Problem Based A/P Additional Plan (1) Preeclampsia: Status: Acute (2) growth restriction antepartum: Status: Acute (3) Advanced maternal age in multigravida: Status: Acute (4) Migraines: Status: Acute (5) HSV (herpes simplex virus) anogenital infection: Status: Acute Plan Meredith is a 35yo seen in triage at 36w6d GA who presented to triage for pelvic pressure. is complicated by growth restriction, new diagnosis of preeclampsia without severe features, history abnormal dopplers on 2 previous US studies (normalized as of last US), history of pregnancies affected by FGR, history of genital herpes (on acyclovir), AMA and migraines. Patient noted onset of worsening pelvic pressure, prompting her visit. Her cervix was initially 2/50/-2, where interval change was noted to 3-3.5/50/-2 by RN exam is across 4 hours. She seems to be alpesh about every 5-8 minutes, describes these is increasingly frequent and painful. She denies any vaginal bleeding or leaking of fluid. Endorses active movement. heart rate tracing was primarily category 1 across extended monitoring period. She did have 2 decelerations around 2330, the 1st appears consistent with early deceleration but the 2nd looks more like a late in timing. Regardless, this was an isolated finding where heart rate tracing is again return to category 1 is reassuring. Patient was noted to have new elevated blood pressures on arrival. This was seen across 4 hours of monitoring, prompting a diagnosis of hypertensive disorder of . Preeclampsia labs were obtained and found to be within normal limits, aside from elevated UPCR of 0.4. Patient presented with a migraine, notes her headache though did improve with rest. Try to take Tylenol but had vomiting, declined further medications. Given improvement with rest and tolerable headache (declining medications) this was not felt to represent to severe feature. No vision changes or right upper quadrant pain. Explained that she would be medically indicated for induction in the setting of complicated growth restriction due to the new diagnosis of preeclampsia without severe features as early as 34 weeks per ACOG. Given her gestation of 36w6d GA, I would recommend augmentation of labor if needed. Patient expressed understanding and is agreeable to plan. - Recommend admission to the Center in the setting of spontaneous onset labor. Currently in the latent phase. Plan to recheck cervix in 4 hours, sooner as clinically indicated. If no changes noted, plan would be to start Pitocin. - Diligent blood pressure monitoring ongoing. No long or short term antihypertensive medications have been required. - PreE labs on admission WNL- Plt 234, Cr 0.5, AST 27 and ALT of 13, UPCR 0.4. Plan to recheck as clinically indicated. - BT O+, plan T/S on admission with IV placement - GBS positive, start ampicillin - s/p BMZ 03/20-03/21 - Pediatrics to attend delivery in the setting of prematurity, FGR and preE
[2025-04-02] MEDS: LACTATED RINGERS 1000 ML 1,000 ML 125 ML IV ×2 (01:05→06:59)
[2025-04-02] MEDS: AMPICILLIN 2 GM in 0.9 % SODIUM CHLORIDE Mini-bag 100 ML IVPB (01:07)
[2025-04-02] MEDS: OXYTOCIN 30 unit/500 ML in NS 30 UNIT/500 ML BAG IVPB (04:29)
[2025-04-02] MEDS: AMPICILLIN 1 GM in 0.9 % SODIUM CHLORIDE Mini-bag 100 ML IVPB (05:00)
[2025-04-02] MEDS: LIDOCAINE 2% (PF) 5 ML VIAL EPIDURAL (05:16)
[2025-04-02] MEDS: ROPIVACAINE 0.2% 100 ml 100 ML 12 MG EPIDURAL (05:16)
[2025-04-02] MEDS: PHENYLEPHRINE 100 MCG/ML SYRINGE IVP ×2 (05:35→06:38)
--- NOTE | 2025-04-02 05:37 | P.ANBPRC_ITS ---
[facility] Medical History growth restriction antepartum ?O36.5990 - Maternal care for other known or suspected poor growth, unspecified trimester, not applicable or unspecified (ICD-10) Spontaneous vaginal delivery ?O80 - Encounter for full-term uncomplicated delivery (ICD-10) Tobacco use (12/06/11) ?Z72.0 - Tobacco use (ICD-10) Depression (12/06/11) ?F32.A - Depression, unspecified (ICD-10) Anxiety (12/06/11) ?F41.9 - Anxiety disorder, unspecified (ICD-10) HSV (herpes simplex virus) anogenital infection ?A60.9 - Anogenital herpesviral infection, unspecified (ICD-10) growth restriction Delivery normal ?O80 - Encounter for full-term uncomplicated delivery (ICD-10) Surgical History History of placement of ear tubes ?Z96.22 - Myringotomy tube(s) status (ICD-10) [place] teeth extracted (12/06/11) ?K08.409 - Partial loss of teeth, unspecified cause, unspecified class (ICD- 10) Family History Father High blood pressure Hodgkin lymphoma Social History What is your current living situation?: I presently have a place to live Problems where you live: no known problems In the past 12 months, utilities in danger of being shut off: no In past 12 months, lack of transportation kept you from medical appts, meetings, work, or getting things needed for daily living: no In the past 12 mos, have been you worried that your food would run out before you had money to buy more?: never true In the past 12 mos, the food you bought just didn't last and you didn't have money to buy more?: never true Smoking Status: Former smoker Do you use any of these nicotine containing products: Vaping Products How often do you have a drink containing alcohol: never AUDIT-C Alcohol total score: 0 Non-prescribed substance use: denies use Caffeine: Yes How often does anyone, including family, friends and others, physically hurt you : never How often does anyone, including family, friends and others, insult or talk down to you: never How often does anyone, including family, friends and others, threaten you with harm: never How often does anyone, including family, friends and others, scream or curse at you: never Are you using contraception or practicing any form of control: No Meds Home Medications and Allergies Home Medications ?Medication ?Instructions ?Recorded ?Confirmed ?Type docosahexaenoic acid 200 mg 200 mg PO DAILY 10/31/24 0 04/01/25 History capsule ( DHA) acyclovir 400 mg tablet 400 mg PO TID #60 tabs 03/2004/01/25 Rx Allergies Allergy/AdvReac Type Severity Reaction Status Date / Time No Known Allergies Allergy Unknown Verified 03/30/25 08:20 Results Labs Labs: Laboratory Results - last 24 hr 04/01/25 04/01/25 04/02/25 20:39 Unknown 01:03 WBC 9.00 RBC 4.31 Hgb 12.5 Hct 37.9 MCV 88 MCH 29 MCHC 33 Plt Count 234 BUN 8 Creatinine 0.5 Estimated GFR 125 AST 27 ALT 13 Urine Creatinine 29.7 Protein/Creatinin Ratio 0.40 H Urine Total Protein 12 Blood Type O Positive Antibody Screen NEGATIVE Vital Signs Vital Signs: Last Vital Signs Temp 98.2 F 04/01/25 19:52 Pulse 81 04/02/25 05:36 BP 122/89 04/02/25 05:36 Pulse Ox 98 04/02/25 05:35 Weight: 56.926 kg Height: 154.94 cm Anesthesia Procedures Epidural Insertion Patient Location: OB Start Time: 05:00 Stop Time: 05:45 Start Date: 04/02/25 Stop Date: 04/02/25 Reason for Block: primary anesthetic Patient Position: sitting Performed By: Chapincito Stapleton Preanesthetic Checklist: IV checked, risks and benefits discussed, surgical consent, monitors and equipment checked, pre-op evaluation, timeout performed and anesthesia consent Prep: chlorhexidine gluconate Monitoring: blood pressure monitoring, nuclear monitoring technician, continuous pulse oximetry and heart rate Approach: midline Vertebral Space: lumbar (1-5) Needle Type: Tuohy needle Injection Technique: continuous catheter (catheter) Needle gauge: 17 Needle Length (cm): 10 cm Needle Insertion Depth (cm): 4 Catheter Gauge: 19 Catheter Type: multi-orifice Catheter at skin depth (cm): 10 Test Dose Result: negative and lidocaine 1.5% with epinephrine 1 to 200,000
--- NOTE | 2025-04-02 08:19 | P.OBPN_ITS ---
Subjective Time Seen by Provider: 08:00 Date Seen: 04/02/25 Narrative: Subjective: Sandhya is feeling some discomfort with contractions even with the epidural. Denies rectal pressure. Verbal consent obtained to attempt AROM. Pitocin: 5 milliunits/minute. Vital signs: Per electronic medical record. EFM: Baseline 140s, positive accelerations, no decelerations, moderate variability, reactive. Category 1. [place]: Contractions every 2-3 minutes. SVE: 7 cm/100 %/0. AROM attempted without fluid identified. vertex is well applied and no placental membrane palpable. Assessment: 35-year-old 1 para 0 at 36 weeks 6 days gestation undergoing induction of labor for FRG and preeclampsia without severe features. Plan: 1. Continue Pitocin per labor induction protocol. 2. Expect vaginal delivery 3. The external monitor is not monitoring the heart rate during contractions so will discuss a scalp electrode with the patient. Objective Vital Signs: Last Vital Signs Temp 98.2 F 04/02/25 03:54 Pulse 74 04/02/25 08:17 Resp 16 04/02/25 03:54 BP 148/91 H 04/02/25 08:17 Pulse Ox 99 04/02/25 06:15
--- NOTE | 2025-04-02 08:59 | W.PM.OBVAGDE ---
OB Procedure Vag Delivery Mother Details Mother Details: The patient is a 35 year-old, 3, Para 2, admitted on 04/02/25 at 36w5 days gestation in prodromal labor. She was diagnosed with preeclampsia without severe features after admission. Her was complicated by growth restriction with 2 episodes of elevated umbilical cord S/D ratio with her most recent umbilical cord S/D ratio being normal on 03/30/2025. She was 3 cm dilated on admission and her contractions spaced and made no progress so Pitocin was started at approximately 4:00 a.m. on 04/02/2025. : 3 Para: 2 Weeks Gestation: 36 Admission Date: 04/01/25 Additional Details Amniotic Membrane Status: AROM Amniotic Membrane Rupture Date: 04/02/25 Amniotic Membrane Rupture Time: 07:52 Amniotic Membrane Fluid Description: Clear Analgesia/Anesthesia Type: Epidural Waterbirth: No Pitcoin: Yes Delivery augmentation: rupture of membranes and pitocin Labor Onset: 05:31 Complete: 08:23 Pushin:29 Heart: heart tones during second stage were were noted to not be monitored as of 8:23 a.m. so to nurses went in to the patient's room to attempt to get the baby back on to the monitor. When the nurse turn the patient from her left side to her back she noticed the baby's head had delivered. The nurse then guided the to the mother's abdomen. Delivery Details Delivery Date: 04/02/25 Delivery Time: 08:29 Route of delivery: Gender: Female Infant Viability: Alive; Heart Rate Present Position at Delivery: OA Delivery Details: I entered the room 10 seconds after the infant delivered. The baby delivered from the direct OA position over an intact perineum via normal spontaneous vaginal delivery at 8:29 a.m. on 04/02/2025. was placed on maternal abdomen.? Cord was clamped and cut after an approximately 5 minute delay. Nose and mouth were bulb suctioned.? Infant weight pending. Apgars 8 at 1 minute and 9 at 5 minutes. There was no laceration. The placenta was sent to pathology due to growth restriction and preeclampsia without severe features. 1 Minute Interval Total Score: 8 5 Minute Interval Total Score: 9 Additional Details Shoulder Dystocia: No Placental Delivery Description: Spontaneous Procedure Done: Global Blood Loss: 50 Laceration: None Episiotomy Description: None Blood Loss Measurement Type: QBL Bakri Used: No Sponge/Need Count Correct: Yes Cord Vessel Description: 3 Vessels Event Summary Status: Mother and were stable after delivery. The patient is planning on .
--- NOTE | 2025-04-02 09:23 | PM.ANPOST ---
Post Anesthesia Note Post Anesthesia Note Patient seen: Inpatient Respiratory Status: adequate Cardiovascular Status: adequate Mental Status: baseline Pain: adequate Temp: baseline Anesthetic awareness: N/A Complications: none Follow care: none
[2025-04-03 04:00] VITALS: BP 135/88; PULSE 74; RESP 18; O2SAT 97
[2025-04-03 07:12] LABS: Hemoglobin* 11.2 gm/dL (12.0-16.0)
[2025-04-03 08:43] LABS: Rapid Plasma Reagin (RPR) Non Reactive (Non Reactive)
[2025-04-03 09:30] VITALS: BP 135/87; PULSE 75; RESP 18; TEMP 36.8; O2SAT 97
[2025-04-03 12:40] VITALS: BP 130/81; PULSE 75; RESP 18; TEMP 36.8
[2025-04-03 16:20] VITALS: BP 131/86; PULSE 74; RESP 16; TEMP 36.8; O2SAT 97
--- NOTE | 2025-04-03 17:48 | PM.OBPNVD1 ---
OB - PN:Subj Subjective Date Seen: 04/03/25 Narrative: Meredith is a 35 y.o. G 3 P 3 who was admitted to [facility] for spontaneous onset of labor. ?She had a NVD that was uncomplicated. Her labor was complicated by diagnosis of pre-eclampsia without SF. The patient feels well. ?The pain is well controlled with current medications. ?She has no new complaints. ?She is breast feeding and reports things are going well. the patient has done well.? Vitals have been stable.? She has remained afebrile.? Has a good appetite, is tolerating a general diet. ?She is voiding without difficulty.? She is passing gas and has not had a bowel movement.? She is ambulating and denies any dizziness.? Has small amount of rubra lochia. Problems: Pre-eclampsia without SF, BP stable OB - PN: Obj Exam Physical Exam: Vital signs: Temp Pulse Resp BP Pulse Ox O2 Del Method 98.3 F 75 18 130/81 97 Room Air 04/03/25 12:40 04/03/25 12:40 04/03/25 12:40 04/03/25 12:40 04/03/25 09:30 04/03/25 12:40 Narrative: GENERAL APPEARANCE:? normal affect, alert, no distress MOOD:? appropriate CHEST:? clear to auscultation HEART:? regular rate and rhythm ABDOMEN:? soft, non-tender the uterine fundus is At Umbilicus, Midline and is appropriate for the stage of recovery. PERINEUM:? mild edema of the perineum. EXTREMITIES:? normal and no edema OB - PN: Obj Data Labs Labs: Laboratory Results - last 24 hr 04/02/25 04/03/25 01:01 06:46 Hgb 11.2 L RPR Screen Non Reactive OB - PN: A/P Delivery Assessment and Plan (1) care and examination immediately after delivery: Status: Acute (2) Preeclampsia: Status: Acute (3) Lactating mother: Status: Acute Plan day: 1 Plan: routine care Comments: , may see if needed? Hgb 11.2.? Pre-eclampsia without SF diagnosed by elevated BP greater than 4 hours apart? Labs WNL Anticipate discharge home tomorrow.
[2025-04-03 19:41] VITALS: BP 123/81; PULSE 74; RESP 18; O2SAT 97
[2025-04-03 20:46] VITALS: BP 126/81; PULSE 78; RESP 16; TEMP 36.8; O2SAT 95
[2025-04-04 00:09] VITALS: BP 124/83; PULSE 74; RESP 16; TEMP 36.6; O2SAT 98
[2025-04-04 05:00] VITALS: BP 131/88; PULSE 81; RESP 16; TEMP 36.7; O2SAT 98
[2025-04-04 08:55] VITALS: BP 119/81; PULSE 92; RESP 16; O2SAT 97
--- NOTE | 2025-04-04 09:54 | P.OBPN_ITS ---
OB - PN:Subj Subjective Date Seen: 04/04/25 Patient comments OB post-: no complaints [place] status: (and supplementing with formula) Narrative: 35 yo currently PPD#2 following a spontaneous vaginal delivery at 36 5/7 weeks gestation. and delivery complicated by AMA, growth restriction and pre-eclampsia without severe features. She feels well. Denies headaches, RUQ pain or swelling. Lochia light. BPs have been under good control without medications, 123-131/81-88 in last 24 hours. Breast feeding and supplementing, has visited with senior solutions workflow consultant yesterday. Infant under bili lights. OB - PN: Obj Exam Physical Exam: Vital signs: Temp Pulse Resp BP Pulse Ox O2 Del Method 98.0 F 92 16 119/81 97 Room Air 04/04/25 05:00 04/04/25 08:55 04/04/25 08:55 04/04/25 08:55 04/04/25 08:55 04/04/25 08:55 Constitutional: Constitutional: no acute distress Routine Neck Exam: Neck: Present normal inspection Routine Respiratory Exam: Respiratory: Present CTA bilaterally; Absent respiratory distress Routine Cardiovascular Exam: Cardiovascular: Present RRR; Absent murmur Routine Abdominal Exam: Abdominal: Present soft; Absent tenderness Fundus: Present firm Routine Extremities Exam: Extremities: Present normal inspection and pedal edema; Absent calf tenderness Routine Neurological Exam: Neurological: Present alert and oriented X3 Routine Psychiatric Exam: Psychiatric: Present normal affect OB - PN: A/P Delivery Assessment and Plan (1) care and examination immediately after delivery: Status: Acute (2) Preeclampsia: Status: Acute (3) Lactating mother: Status: Acute Plan day: 2 Comments: Discussed home BP monitoring and follow up.
--- NOTE | 2025-04-04 10:00 | PM.OBDSVD1 ---
DS: Providers Provider Date Seen: 04/04/25 Date of admission: 04/02/25 00:34 Primary care physician: Not a Local Provider Admitting Clinician: Graciela Moreno MD Attending Physician on discharge: Antonette Rodriguez MD Date of Discharge: 04/04/25 DS: Diagnosis Discharge Diagnosis (1) care and examination immediately after delivery: Status: Acute (2) Preeclampsia: Status: Acute (3) Lactating mother: Status: Acute Exam Const: Vital Signs, click to edit/add: Vital Signs - 24 hr 04/03/25 12:40 04/03/25 16:20 04/03/25 19:41 Temperature 98.3 F 98.2 F Pulse Rate [Pulse Oximeter] 75 74 74 Respiratory Rate 18 16 18 Blood Pressure [Le ft Arm] 130/81 131/86 123/81 Pulse Oximetry 97 97 Oxygen Delivery Me thod Room Air Room Air Room Air 04/03/25 20:46 04/04/25 00:09 04/04/25 05:00 Temperature 98.2 F 97.9 F 98.0 F Pulse Rate [Pulse Oximeter] 78 74 81 Respiratory Rate 16 16 16 Blood Pressure [Le ft Arm] 126/81 124/83 131/88 Pulse Oximetry 95 98 98 Oxygen Delivery Me thod Room Air Room Air Room Air 04/04/25 08:55 Temperature Pulse Rate [Pulse Oximeter] 92 Respiratory Rate 16 Blood Pressure [Le ft Arm] 119/81 Pulse Oximetry 97 Oxygen Delivery Me thod Room Air Documenting provider has reviewed patient's vital signs: yes Common normals: no apparent distress and oriented x3 General appearance: cooperative and comfortable HENMT: Common normals: normocephalic Head and scalp: normocephalic Resp: Common normals: normal respiratory effort Cardio: Common normals: regular rate and regular rhythm Rate: regular rate Rhythm: regular rhythm GI: Common normals: soft to palpation and non-tender Inspection: normal to inspection Palpation: soft Other: Fundus firm, U/3. Extremity: Common normals: normal to inspection and no pedal edema Neuro: Common normals: oriented x3 Psych: Common normals: affect normal OB - DS: Summary Hospital Course Hospital Course: The patient is a 35 year old G 3 P 1112 at 36 5/7 weeks gestation that was admitted to the Center on 04/02/25 for latent labor, growth restriction and pre-eclampsia without severe features. She had an uncomplicated vaginal delivery. She delivered a viable female infant. She is breast and bottle feeding. the patient has done well. BP has remained stable without medications. Peripartum Data Laceration description: None Episiotomy description: None complications: none Lane Gender: Female Status at Discharge Functional status at discharge: independent ambulation Overall status at discharge: patient is back to baseline Time Spent with Patient Time attestation: Total time spent providing and/or coordinating discharge services: Discharge Plan Discharge Disposition: Home, Self-Care Date of Admission: 04/02/25 00:34 Primary Care Provider: Provider,Not a Local Condition: Stable Anticipated Discharge Date/Time: 04/04/25 10:05 Discharge Medications: New docusate sodium 100 mg Capsule 100 mg PO DAILY Qty: 30 0RF ibuprofen 600 mg Tablet 600 mg PO Q6H PRNQty: 30 0RF Continued DHA 200 mg capsule 200 mg PO DAILY acyclovir 400 mg tablet 400 mg PO TID Qty: 60 0RF Discharge Orders: Discharge Order (Routine); Ordered 04/04/25 Ordered By: Antonette Rodriguez Patient Education: OB High Blood Pressure DC, OB Over the Counter Medication Information, OB Vaginal/Breast Feeding Follow Up Appointments: Provider,Not a Local [Primary Care Provider, Family Practice] Forms: [employer] Info Instructions DS:Data Additional Comments Additional comments: Hgb 11.2
[2025-04-04 13:05] VITALS: BP 129/87; PULSE 83; RESP 16; O2SAT 98
[2025-04-04 16:01] VITALS: BP 125/86; PULSE 93; RESP 16; TEMP 36.7; O2SAT 96
[2025-04-04 19:47] VITALS: BP 128/75; PULSE 89; RESP 16; TEMP 36.7; O2SAT 96
== END 2025-04-04 21:41 | disposition home or self-care (01) | DRG 560 ==
LOC: OB 09:21 → OB OUT 09:21
PROVIDERS: Obstetrics & Gynecology; Admitting Provider Obstetrics & Gynecology; Visit Provider Obstetrics & Gynecology
DX: O14.04 Mild to moderate pre-eclampsia, complicating childbirth (principal); O60.14X0 Preterm labor third trimester with preterm delivery third trimester, not applicable or unspecified; O36.5930 Maternal care for other known or suspected poor fetal growth, third trimester, not applicable or unspecified; O99.824 Streptococcus B carrier state complicating childbirth; O98.32 Other infections with a predominantly sexual mode of transmission complicating childbirth; A60.00 Herpesviral infection of urogenital system, unspecified; G43.909 Migraine, unspecified, not intractable, without status migrainosus; Z3A.36 36 weeks gestation of pregnancy; Z37.0 Single live birth
CPT/HCPCS: 01967; 36415; 76815; 76820; 82565; 82570; 84156; 84450; 84460; 84520; 85018; 85027; 86592; 86850; 86900; 86901; 88307; 94761; G0463; A9270; J0290; J2795; J7120

== ENCOUNTER 2025-06-14 05:51 | Emergency (ER) | payer BC, SELFPAY ==
--- OUTSIDE RECORDS SUMMARY | 2025-06-14 05:56 | XMS_ITS ---
Author Organization [facility] Source Produ ction (ClinicalSummary Clone) Address Unknown Care Team Providers Care Chief Librarian Music Department Name Role Phone Unavailable Primary Care Physician Unavailab le Results * [[facility]ITY] ANEUPLOIDY NIPT Performed by: [employer] Value Range Date Fraction 12.8% 11/08/2024 04 :43 am UTC 22q11.2 Microdeletion LOW RISK <1 in 10,000 11/08/2024 04:43 am UTC Sex Chromosome Aneuploidy NOT DETECTED 04:43 am UTC Monosomy X LOW RISK <1 in 10,000 2024 04:43 am UTC Trisomy 13 LOW RISK <1 in 10,000 2024 04:43 am UTC Trisomy 18 LOW RISK <1 in 10,000 2024 04:43 am UTC Trisomy 21 LOW RISK <1 in 10,000 2024 04:43 am UTC Sex FEMALE 11/08/2024 04:4 3 am UTC Gestation [id number] 11/08/19 25 04:43 am UTC For detailed report, see PDF See PDF 11/08/2024 04:43 am UTC 11/08/2024 04:4 3 am UT Social History Observation Value Start Date End Date
--- OUTSIDE RECORDS SUMMARY | 2025-06-14 05:56 | XMS_ITS | Clinical Summary ---
Author Organization [facility] Address [address] [place], [place] [address] [address] Care Team Providers Care Group Manager Name Role Phone No Ref-Primary, Physician Primary Care Provider Social History Tobacco Use Types Packs/Day Years Used Date Smoking Tobacco: Never Assessed Tobacco Cessation:Counseling Given: Not Answered Adolescent Education Answer Date Record ed Getting School Help Needed Not on file 07/14 Comments No Sex and Gender Information Value Date Recorded Sex Assigned at Not on file Legal Sex Female 3:24 PM CDT Gender Identity Not on file Sexual Orientation Not on file Last Filed Vital Signs Vital Sign Reading Time Taken Comments Blood Pressure 120/85 04/12/2023 12:55 PM CDT Pulse 76 04/12/2023 12:55 PM CDT Temperature - - Respiratory Rate - - Oxygen Saturation - - Inhaled Oxygen Concentration - - Weight - - Height - - Body Mass Index - - Plan of Treatment Health Maintenance Due Date Last Done Comments ADVANCE CARE PLANNING 1990 ANNUAL REVIEW OF HM ORDERS 1990 DIABETES SCREENING 1990 YEARLY PREVENTIVE VISIT 1993 HIV SCREENING 2005 HEPATITIS C SCREENING 02/03/2008 PAP 2011 COVID-19 VACCINE ( season) 2024 PHQ-2 (once per calendar year) 2024 INFLUENZA VACCINE (#1) 2025 9, 10/18/2009, 10/18/2009, Additional history exists DTAP/TDAP/TD VACCINE (8 - Td or Tdap) 04/13/2033 04/13/2023, 06/29/2014, 06/03/2004, Additional history exists ZOSTER VACCINE (1 of 2) 02/03/2040 HEPATITIS B VACCINE Completed 07/16/2002, 02/12/2002, 01/10/2002 HPV VACCINE Completed 02/10/2008, 01/21, 10/14/2007, Additional history exists MENINGITIS VACCINE Aged Out No longer eligible based on patient's age to complete this topic PNEUMOCOCCAL VACCINE: PEDIATRICS (0 to 5 YEARS) AND AT-RISK PATIENTS (6 to 49 YEARS) Aged Out No longer eligible based on patient's age to complete this topic Insurance Care Teams Group Manager Relationship Specialty Start Date End Date No Ref-Primary, Physician PCP - General 04/12/23
--- OUTSIDE RECORDS SUMMARY | 2025-06-14 05:56 | XMS_ITS ---
Author Organization [facility] Source Produ ction (ClinicalSummary Clone) Address Unknown Care Team Providers Care Fish Roe Technician Name Role Phone Unavailable Primary Care Physician Unavailab le Results * [UNITY] ANEUPLOIDY NIPT Performed by: Tier 3 Component Value Range Date Fraction 12.8% 11/10/2024 04 :30 pm UTC 22q11.2 Microdeletion LOW RISK <1 in 10,000 11/10/2024 04:30 pm UTC Sex Chromosome Aneuploidy NOT DETECTED 04:30 pm UTC Monosomy X LOW RISK <1 in 10,000 2024 04:30 pm UTC Trisomy 13 LOW RISK <1 in 10,000 2024 04:30 pm UTC Trisomy 18 LOW RISK <1 in 10,000 2024 04:30 pm UTC Trisomy 21 LOW RISK <1 in 10,000 2024 04:30 pm UTC Sex FEMALE 11/10/2024 04:3 0 pm UTC Gestation ZUÑIGA 11/10/19 04:30 pm UTC This result reflects an amended result This corrected report replaces the previous report and includes corrected patient demographic information. 11/10/2024 04:30 pm UTC For detailed report, see PDF See PDF 11/10/2024 04:30 pm UTC 11/10/2024 04:3 0 pm UTC Social History Observation Value Start Date End Date
--- OUTSIDE RECORDS SUMMARY | 2025-06-14 05:56 | XMS_ITS | Encounter Summary ---
Author Organization Check Address [facility] [place] [address] Care Team Providers Care Pharmacy Ancillary Name Role Phone No Ref-Primary, Physician Primary Care Provider Maria Teresa Baires MD Unavailable [phone] Encounter Details Date Type Department Care Team (Late st Contact Info) Description 04/12/2023 Orders Only [facility] [address] [facility] [place] [phone] Maria Teresa Baires MD [address] [place] [address] Abnormal ultrasound (Primary Dx) Social History Tobacco Use Types Packs/Day Years Used Date Smoking Tobacco: Never Assessed Comments Yes Sex and Gender Information Value Date Recorded Sex Assigned at Not on file Legal Sex Female 3:24 PM CDT Gender Identity Not on file Sexual Orientation Not on file COVID-19 Exposure Response Date Recorded In the last 10 days, have yo u been in contact with someone who was confirmed or suspected to have Coronavirus/COVID-19? No / Unsure 04/12/2023 11:54 AM CDT documented as of this encounter Plan of Treatment Not on file documented as of this encounter Visit Diagnoses Diagnosis Abnormal ultrasound- Primary Abnormal findings on screening documented in this encounter Care Teams Pharmacy Ancillary Relationship Specialty Start Date End Date No Ref-Primary, Physician PCP - General 04/12/23 Maria Teresa Baires MD [address] [place] [address] Assigned OBGYN Provider 04/21/2310/12 documented as of this encounter
--- OUTSIDE RECORDS SUMMARY | 2025-06-14 05:56 | XMS_ITS ---
Author Organization [facility] Source Produ ction (ClinicalSummary Clone) Address Unknown Care Team Providers Care Managing Consultant Clinical Professor Name Role Phone Unavailable Primary Care Physician Unavailab le Results * [UNITY] CARRIER SCREEN Performed by: Growish Component Value Range Date Sickle Cell Disease/Beta-Thalassemia/Hemo globinopathies carrier screen NEGATIVE 11/18/2024 03:43 pm UTC Alpha-Thalassemia carrier screen NEGATIVE 11/18/2024 03:43 pm UTC Cystic Fibrosis carrier screen NEGATIVE 11/18/2024 03:43 pm UTC Spinal Muscular Atrophy carrier screen NEGATIVE 2 SMN1 copies, SNP not present 11/18/2024 03:43 pm [place] For detailed report, see PDF See PDF 11/18/2024 03:43 pm UTC 11/18/2024 03:4 3 pm UT Social History Observation Value Start Date End Date
--- OUTSIDE RECORDS SUMMARY | 2025-06-14 05:56 | XMS_ITS | Clinical Summary ---
Author Organization [facility] Address [address] [place] [address] Care Team Providers Care Ladle Liner Name Role Phone Izabella Go CNM Unavailable [phone] Pcp, No Primary Care Provider Unavailabl e Allergies No known active allergies Medications acyclovir (ZOVIRAX) 400 mg tabletIndications: Genital herpes, unspecified Take 1 tablet by mouth 2 times daily. Take for 5 days for outbreak 20 tablet 5 12/09/19 15 Active medroxyPROGESTERon e acetate, contraceptive, (DEPO-PROVERA) 150 mg/mL injection 3 09/26/20 17 Active tamsulosin (FLOMAX) 0.4 mg capsuleIndications :Kidney stone Take 1 capsule by mouth once daily after a meal. 5 capsule 10/20/20 17 Active oxyCODONE-acetamin ophen, 5-325 mg, (PERCOCET) 5-325 mg per tabletIndications: Kidney stone Take 1-2 tablets by mouth every 4 hours if needed for Pain Max acetaminophen dose: 4000mg in 24 hrs. 15 tablet 10/20/20 17 Active ibuprofen (ADVIL; MOTRIN) 600 mg tabletIndications: Kidney stone Take 1 tablet by mouth 4 times daily if needed. Maximum of 3200 mg in 24 hours. 30 tablet 10/20/20 17 Active ondansetron (ZOFRAN ODT) 4 mg disintegrating tabletIndications: Kidney stone Place 1 tablet on the tongue every 8 hours if needed for Nausea/Vomiting. 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 Bipolar II Affective Disorder 12/14/2008 12/10/2014 Encounters Date Type Department Care Team Description 04/02/2025 Lab Requisition [facility] [phone] Dorothy Oh MD from Last 3 Months Immunizations Immunization Administration Dates Next Due DTP 07/22/1991, 1,1990,04/04 DTaP 07/03/1995 HIB PRP-OMP (PedvaxHIB) 08/14/1991 Hepatitis B (Peds) 07/16/2002,02/12/2002, 002 Human Papilloma Virus Vaccine 02/10/2008, 007,08/08/2007 10/08/2007 Influenza A (H1N1), Inactiva tim (Age >=3 Years) 10/18/2009 Influenza, IIV3 (Age >=3 years) 10/18/2009 MMR 06/13/1991 Oral Polio Vaccine 07/03/1995, 1,1990,04/04 Td (Age >=7 Years) 06/03/2004 Tdap 06/29/2014 Family History Medical History Relation Name Comments Hypertension Father Diabetes Maternal Grandfather pre bob betes Thyroid Disease Other nephew Diabetes Sister 1 pre diabetes, 1 /2 sister Hypertension Sister 2 Hypertension Sister 3 Relation Name Status Comments Father Alive Maternal Grandfather Mother Alive Other Sister 1 Sister 2 Sister 3 Social History Tobacco Use Types Packs/Day Years Used Date Smoking Tobacco: Former Cigarettes Q uit: 04/14/2011 Smokeless Tobacco: Never Tobacco Cessation:Counseling Given: Yes Alcohol Use Standard Drinks/Week Comments No 0 (1 standard drink = 0.6 oz pur e alcohol) Social Connections Answer Date Recorded Frequency of Communication with Friends and Fami ly Not on file 05/07/2023 Comments No Sex and Gender Information Value Date Recorded Sex Assigned at Not on file Legal Sex Female 5:24 AM TOE STAPLER Gender Identity Not on file Sexual Orientation Not on file Occupation Industry Job Start Date Job End Date [employer] Not on file Not on file Not on file Obstetrics History Para Term AB IAB SAB Ectopic Multiple Livin g Live Births 1 0 0 0 0 0 0 0 0 0 Date Outcome GA Total Labor Labor/2nd/3rd Weight Sex Type Anes PTL Susan A1 A5 Name Clin Last Filed Vital Signs Vital Sign Reading Time Taken Comments Blood Pressure 111/72 10/20/2017 10:45 AM TOE STAPLER Pulse 75 10/20/2017 10:42 AM TOE STAPLER Temperature 36.6 C (97.8 F) 10/20/2017 9:52 AM TOE STAPLER Respiratory Rate 16 10/20/2017 9:06 AM TOE STAPLER Oxygen Saturation 100% 10/20/2017 10:42 AM TOE STAPLER Inhaled Oxygen Concentration - - Weight 47.6 kg (105 lb) 10/20/2017 6:20 AM TOE STAPLER Height 157.5 cm (5' 2) 10/20/2017 6:20 AM TOE STAPLER Body Mass Index 19.2 10/20/2017 6:20 AM TOE STAPLER Plan of Treatment Health Maintenance Due Date Last Done Comments Depression screening for age 12+ 2002 BMI (ht and wt on same day) for age 18+ 02/03/2008 COVID-19 vaccine series ( season) 2024 Tetanus booster 06/29/2024 06/29/2014, 06/03/2004 Influenza Vaccine (#1) 2025 10/18/2009 Pap test for age 21-65 11/10/2025 3, 11/10/2022, 12/26/2013, Additional history exists Hepatitis B series for 19+ Completed 07/16, 02/12/2002, 01/10/2002 HIV for age 15-65 Completed 10/18/2009 Hepatitis C screening for age 18-79 Completed 10/18/2009 Pneumococcal series for age 6-49 Aged Out No longer eligible based on patient's age to complete this topic Procedures Procedure Name Priority Date/Time Associated Diagnosis Comments LAB TRACKING EVENT Routine 04/02/2025 8: 29 AM CDT PATH TISSUE EXAM PLACENTA Routine 04/02/2025 8:29 AM CDT RAIL SETTER THIN PREP PAP SCREEN IMAGED Routine 11/10/2022 12:00 PM TOE STAPLER ANTI HIV 1/2 Routine 10/18/2009 3:27 PM TOE STAPLER Routine Screening for STI (Sexually Transmitted Infection) ANTI HCV Routine 10/18/2009 3:27 PM TOE STAPLER Routine Screening for STI (Sexually Transmitted Infection) from Last 3 Months or Most Recently Relevant to Health Maintenance Results * LAB TRACKING EVENT (04/02/2025 8:29 AM CDT) Other (Other) Client Collect / Unknown 04/02/2025 8:29 AM CDT 04/02/2025 10:44 PM CDT Dorothy Oh MD LAB BILL ONLY Fi nal Result [facility] [address] [place] [address], * PATH TISSUE EXAM PLACENTA (04/02/2025 8:29 AM CDT) Case Report Pathology Report Case: [id number] Authorizing Provider: Dorothy Oh Collected: 04/02/2025 0829 MD Graciela Ordering Location: [facility] Received: 04/03/2025 0842 Pathologist: Lilliana Guerra MD Specimen: Placenta 04/07/2025 12:04 PM CDT [facility] Final Diagnosis A) PLACENTA, VAGINAL DELIVERY: 1. Third trimester [place] placenta with the following characteristics: a. Weight: 300 grams (<10th percentile for gestational age) b. Membranes/ surface: Mildly increased subchorionic fibrin Negative for chorioamnionitis c. Umbilical cord: Three vessel cord Negative for funisitis d. Disc/Villi: Chorionic villi consistent with gestational age Negative for villitis Placental disc with infarct(s), involving <5% of the disc volume Intervillous/subch orionic thrombus, involving <5% of the disc e. Decidua/basal plate: No diagnostic abnormalities identified 04/07/2025 12:04 PM CDT [facility] LABORAT[facility]-C ENTRAL LABORATORY at 1204 CDT Comment The patient's clinical history of pre-eclampsia is noted. Some histologic features that can be associated with maternal hypertensive disorders include decidual vasculopathy, infarcts, abruption, villous maldevelopment, and small placental size. In this case, the placenta is small and an infarct is seen. Placental infarcts are very common and can be seen in most placentas. When they involve less than 15% of the placental volume, as in this case, the infarcts are not associated with any significant clinical outcome. Intraplacental hematomas (intervillous thrombi) are usually innocuous when small and few in number, as in this case. When numerous, they may be associated with significant -maternal hemorrhage, leading to anemia and its complications. 04/07/2025 12:04 PM CDT [facility] LABORAT[facility] Clinical Information Indications for Placental Examination by Pathology / indications: IUGR Maternal indications: Pre-eclampsia Placental indications: None indicated Clinical information: Date of delivery: 04/02/2025 Time of delivery: 828 Type of delivery: Vaginal Live born:Yes Gestational age: 36+6 weeks weight of infant(s): 2365 grams Sex of (s): Female Pertinent Maternal History: Maternal parity: Diabetes: No Hypertension: No Eclampsia: No Smoking: Yes (vaping) 04/07/2025 12:04 PM CDT [facility] LAB[facility] Gross Description A) Received fresh labeled with the patient's name and placenta, is a [place] placenta with attached membranes and umbilical cord. The marginally inserted membranes are pink-miller and semitranslucent, and the point of rupture cannot be definitively determined. The paracentrally inserted umbilical cord (40.5 cm long and 1.0 cm in average diameter) is miller-white and focally bluegray with a ropelike twisting pattern (3-4 coils per 10 cm) and no distinct true/false knots. The umbilical cord inserts 4.0 cm from the edge of the placental disc, and displays 3 distinct vessels on cut surface. The placental disc (16.4 x 14.8 x 3.0 cm and 300 g) surface is miller and bluegray and glistening with prominent unremarkable vasculature and multiple diffusely scattered foci of miller-white subchorionic fibrin deposition occupying approximately 15% of the surface. The maternal surface is red-brown with complete cotyledons and several scattered foci of loosely adherent blood clot material. Serially sectioning the placental disc reveals spongy purple-red parenchyma with 3 distinct centrally located miller-white and red-brown striated parenchymal lesions (ranging from 1.2 to 2.5 cm in greatest dimension) as well as several scattered foci of miller-white fibrin deposition/mineral ization, collectively occupying approximately 5% of the specimen in total. Insurance Service Representative sections are submitted as follows: 1. Membranes and insertion 2. Umbilical cord 3. Full-thickness central placental disc at umbilical cord insertion site 4-6. Full-thickness central placental disc with parenchymal lesions and fibrin deposition/mineral ization ADW 04/03/2025 04/07/2025 12:04 PM CDT [facility] Microscopic Description The final diagnosis is based on microscopic examination of appropriate sections of all specimens. 04/07/2025 12:04 PM CDT [facility] Additional Information Interpreted at [facility] - [address] [place] [id number] 04/07/2025 12:04 PM T [facility] Tissue SPECIMEN FROM PLACENTA / Unknown 04/02/2025 8:29 AM CDT 04/03/2025 8:42 AM CDT us Dorothy Oh MD PATHOLOGY/CYTOLOGY Final Result [facility] [address] [place] [address], [place] * RAIL SETTER THIN PREP PAP SCREEN IMAGED (11/10/2022 12:00 PM TOE STAPLER) Case Report Gynecologic Cytology Report Case: [id number] Authorizing Provider: Joyce Fagan NP Collected: 11/10/2022 1200 Ordering Location: [facility] Received: 11/14/2022 1158 First Screen: BacLis de la cruze Pathologist: Zeyad Tran Jr., MD Specimen: RAIL SETTER ThinPrep Vial Screening, Cervical 11/24/2022 12:27 PM TOE STAPLER [facility] INTERPRETATION/ RESULT NEGATIVE FOR INTRAEPITHELIAL LESION OR MALIGNANCY (NIL) (none) 11/24/2022 12:27 PM TOE STAPLER [facility] at 1227 TOE STAPLER OTHER NON-NEOPLASTIC FINDING(S) Reactive cellular changes associated with inflammation/repa ir 11/24/2022 12:27 PM TOE STAPLER [facility] SPECIMEN ADEQUACY Satisfactory for evaluation Endocervical component present 11/24/2022 12:27 PM TOE STAPLER [facility] HPV REQUEST HPV and PAP 11/24/2022 12:27 PM TOE STAPLER [facility] Date of LMP 09/04/2022 11/24/2022 12:27 PM TOE STAPLER [facility] Last Pap Date 12/26/2013 11/24/2022 12:27 PM TOE STAPLER [facility] Last Pap Result NIL 12:27 PM TOE STAPLER [facility] Abnormal Pap or [place] Bx in last 5 years No 11/24/2022 12:27 PM TOE STAPLER [facility] Menstrual Status 11/24/2022 12:27 PM TOE STAPLER [facility] [place] Bx Done Today No 11/24/2022 12:27 PM TOE STAPLER [facility] Additional Information 11/24/2022 12:27 PM TOE STAPLER [facility] Comment: Interpreted at [facility] - [address], [place] [address] Automated Review Successful 11/24/2022 12:27 PM TOE STAPLER [facility] Comment:Specimen processed s uccessfully by automated presser cotton ginning device, ThinPrep Imaging System, [employer] ANCILLARY TESTING RAIL SETTER HPV Ordered, Please see separate report 11/24/2022 12:27 PM TOE STAPLER [facility]-C ENTRAL LABORATORY Note The pap test is a screening technique, not a diagnostic procedure. It is used primarily to screen for squamous cancers and precursor lesions. Published studies have shown that it is subject to both false negative and false positive results. The pap test should not be used as the sole means to diagnose or exclude pre-malignant and malignant lesions. 11/24/2022 12:27 PM TOE STAPLER [facility]-C ENTRAL LABORATORY Other (Cervical) 11/10/2022 12:00 PM TOE STAPLER 11/14/2022 11:58 AM TOE STAPLER Joyce Fagan NP PATHOLOGY/CYTOLOGY Final Result [facility] [address] [place] [address], * ANTI HCV (10/18/2009 3:27 PM TOE STAPLER) ANTI HCV Non-reacti ve [facility] Blood specimen (specimen) BLOOD SPECIMEN / Unknown 10/18/2009 3:27 PM TOE STAPLER 10/18/2009 3:19 PM TOE STAPLER Lisa Rincon MD SEND OUTS Final R esult Performing Organization Address [facility]/ZIP Co de Phone Number [facility] INTERNAL ZIP [address] [address] * ANTI HIV 1/2 (10/18/2009 3:27 PM TOE STAPLER) ANTI HIV 1/2 Non-reacti ve [facility] Blood specimen (specimen) BLOOD SPECIMEN / Unknown 10/18/2009 3:27 PM TOE STAPLER 10/18/2009 3:19 PM TOE STAPLER Lisa Rincon MD SEND OUTS Final R esult Performing Organization Address [facility]/ZIP Co de Phone Number [facility] [place]NAL ZIP [phone] [place] [phone] from Last 3 Months or Most Recently Relevant to Health Maintenance Insurance [facility] Care Teams Ladle Liner Relationship Specialty Start Date End Date Pcp, No . PCP - General 09/11/23 Izabella Go CNM [address] [place] [address] Certified Nurse Flight Communications Officer 02/01/23
[2025-06-14 05:57] VITALS: BP 139/93; PULSE 76; RESP 16; TEMP 36.8; O2SAT 98; BMI 21.4
[2025-06-14 06:06] LABS: Appearance Urine Clear (Clear)
[2025-06-14 06:08] LABS: Ur HCG Qualitative* Negative (Negative)
--- NOTE | 2025-06-14 06:08 | ED.GENADULT ---
HPI - General Adult General Chief complaint: Flank Pain Stated complaint: right flank pain Time Seen by Provider: 06/14/25 06:08 History of Present Illness HPI narrative: 0400 woke up sweaty with R flank pain. comes and goes since. hx of kidney stones. denies blood in urine, denies fevers. no meds taken prior to coming. 35-year-old woman presenting to the emergency department with right flank pain. Woke from sleep with intense pain in the right flank area. This is around 4:00 a.m. about 2 hours prior to arrival the emergency department. Sounds like was feeling well prior to this. Does have a history of kidney stones; last experienced around 10 years ago perhaps. Has not had any fever. No noted hematuria. Bowel problems noted. Pain was much more intense; admittedly had settled a little bit now. But is starting to ramp back up. Typically worse when moving her right leg somehow. Related Data Previous Rx's ?Medication ?Instructions ?Recorded tamsulosin 0.4 mg capsule (Flomax) 0.4 mg PO DAILY PRN Ureteral spasm 06/14/25 #15 caps Allergies Allergy/AdvReac Type Severity Reaction Status Date / Time No Known Allergies Allergy Unknown Verified 06/14/25 05:59 Review of Systems Status of ROS: Reports: 6 or more systems reviewed and unremarkable except as noted in History and below [facility] Medical History Previous baby with growth restriction ?Z87.59 - Personal history of other complications of , childbirth and the puerperium (ICD-10) growth restriction antepartum ?O36.5990 - Maternal care for other known or suspected poor growth, unspecified trimester, not applicable or unspecified (ICD-10) Spontaneous vaginal delivery ?O80 - Encounter for full-term uncomplicated delivery (ICD-10) Tobacco use (12/06/11) ?Z72.0 - Tobacco use (ICD-10) Depression (12/06/11) ?F32.A - Depression, unspecified (ICD-10) Anxiety (12/06/11) ?F41.9 - Anxiety disorder, unspecified (ICD-10) HSV (herpes simplex virus) anogenital infection ?A60.9 - Anogenital herpesviral infection, unspecified (ICD-10) growth restriction Delivery normal ?O80 - Encounter for full-term uncomplicated delivery (ICD-10) Surgical History History of placement of ear tubes ?Z96.22 - Myringotomy tube(s) status (ICD-10) [place] teeth extracted (12/06/11) ?K08.409 - Partial loss of teeth, unspecified cause, unspecified class (ICD-10) Family History Father High blood pressure Hodgkin lymphoma Social History What is your current living situation?: I presently have a place to live Problems where you live: no known problems In the past 12 months, utilities in danger of being shut off: no In past 12 months, lack of transportation kept you from medical appts, meetings, work, or getting things needed for daily living: no In the past 12 mos, have been you worried that your food would run out before you had money to buy more?: never true In the past 12 mos, the food you bought just didn't last and you didn't have money to buy more?: never true Smoking Status: Former smoker Do you use any of these nicotine containing products: Vaping Products Second hand tobacco smoke exposure: No How often do you have a drink containing alcohol: never AUDIT-C Alcohol total score: 0 Non-prescribed substance use: denies use Caffeine: Yes How often does anyone, including family, friends and others, physically hurt you: never How often does anyone, including family, friends and others, insult or talk down to you: never How often does anyone, including family, friends and others, threaten you with harm: never How often does anyone, including family, friends and others, scream or curse at you: never Are you using contraception or practicing any form of control: No Exam Narrative: Exam Narrative: Pleasant. Appears uncomfortable. Slim. She is seated hunched over in bed with her legs crossed. Mildly labored in her breathing. Skin is warm and dry with various tattoos. Abdomen is soft and tender in deep right mid abdomen. Sore to percussion the right flank as well. Lungs appear to be clear. Heart in regular rate and rhythm. Const: Vital Signs, click to edit/add: Vital Signs - 24 hr 06/14/25 05:57 Temperature 98.2 F Pulse Rate [Pulse Oximeter] 76 Respiratory Rate 16 Blood Pressure [Le ft Upper Arm] 139/93 H Pulse Oximetry 98 Oxygen Delivery Me thod Room Air Documenting provider has reviewed patient's vital signs: yes Course Vital Signs Vital signs: Initial Vital Signs Temperature 98.2 F 06/14/25 05:57 Temperature Source Temporal Artery Scan 06/14/25 05:57 Pulse Rate 76 06/14/25 05:57 Respiratory Rate 16 06/14/25 05:57 Blood Pressure 139/93 H 06/14/25 05:57 Blood Pressure Mean 108 H 06/14/25 05:57 Blood Pressure Position Sitting 06/14/25 05:57 Pulse Oximetry 98 06/14/25 05:57 Oxygen Delivery Method Room Air 06/14/25 05:57 Vital Signs Temperature 98.2 F 06/14/25 05:57 Pulse Rate 76 06/14/25 05:57 Respiratory Rate 16 06/14/25 05:57 Blood Pressure 139/93 H 06/14/25 05:57 Pulse Oximetry 98 06/14/25 05:57 Oxygen Delivery Method Room Air 06/14/25 05:57 Temperature 98.2 F 06/14/25 05:57 Pulse Rate 76 06/14/25 05:57 Respiratory Rate 16 06/14/25 05:57 Blood Pressure 139/93 H 06/14/25 05:57 Pulse Oximetry 98 06/14/25 06:25 Oxygen Delivery Method Room Air 06/14/25 05:57 Medications Administered Medications: Discontinued Medications Generic Name Dose Route Start Last Admin Trade Name Freq PRN Reason Stop Dose Admin Sodium Chloride 1,000 mls @ 1,000 mls/hr 06/14/25 06:14 06/14/25 08:23 0.9 % Sodium Chloride 1000 Ml IV 06/14/25 07:13 Infused .Q1H ONE Infusion Ketorolac Tromethamine 30 mg 06/14/25 06:14 06/14/25 06:18 Ketorolac 30 Mg/Ml Inj IVP 06/14/25 06:15 30 mg ONCE ONE Administration Morphine Sulfate 4 mg 06/14/25 06:14 06/14/25 06:18 Morphine 4 Mg/Ml Inj IVP 06/14/25 06:15 4 mg ONCE ONE Administration Tamsulosin HCl 0.4 mg 06/14/25 07:54 06/14/25 08:09 Tamsulosin Hcl 0.4 Mg Capsule PO 06/14/25 07:55 0.4 mg ONCE ONE Administration Medical Decision Making MDM Narrative Medical decision making narrative: Symptoms are consistent with ureteral stone colic. Urinalysis was collected on arrival though with her concern of possible urinary tract infection. Urinalysis looks only to be with blood. Differential might also include biliary colic but I think this less likely. Will place IV fluids. Ketorolac, morphine. Does not appear need anything for nausea. Anticipate CT imaging as has been sometime since this has been a problem. No CT imaging of the abdomen and pelvis available for review recently. Only ultrasounds looks like related to . Reassuring labs otherwise. On reassessment is markedly improved. CT imaging of abdomen and pelvis independently reviewed by me is difficult given body habitus being quite slim. There is a punctate calculus in the center of the right kidney. Possibly some phleboliths in the lower UVJ area. Not certain that these are in the ureter. Radiology over-read below noting secondary signs of likely recently passed stone. TECHNIQUE: CT abdomen and pelvis without contrast. COMPARISON: None. FINDINGS: Lower chest: Unremarkable. Liver: Unremarkable. Gallbladder and bile ducts: Unremarkable. Pancreas: Unremarkable. Spleen: Unremarkable. Adrenal glands: Unremarkable. Kidneys: Mild right hydronephrosis and proximal hydroureter without visualized ureteral stone. There is mild right perinephric stranding and periureteric stranding. Nonobstructing nephrolith in the right kidney. No left hydronephrosis or hydroureter. GI tract: No obstruction. No evidence of significant bowel inflammation. Normal appendix. Vasculature: Abdominal aorta is normal in caliber. Lymph nodes: No lymphadenopathy. Peritoneum/Abdominal Wall: Tiny fat containing umbilical hernia. Pelvis: Unremarkable. Bones: Unremarkable for age. IMPRESSION: Mild right hydronephrosis and proximal hydroureter without visualized ureteral stone. This is most likely related to a recently passed stone. Infection can also have this appearance if symptoms are concerning. Please note that all CT scans at this facility use dose modulation, iterative reconstruction, and/or weight-based dosing when appropriate to reduce radiation dose to as low as reasonably achievable. Dictated by Agnieszka Canela MD @ 06/14/2025 7:18:49 AM Overall improved. Given Flomax in the emergency department prior to discharge See patient discharge plan for further discussion Stay well hydrated with water. May consider straining your urine over this next week. I am prescribing Flomax which can be helpful for ureteral spasm should this continue. Otherwise from [facility] a prescription of Percocet. Can take up to 800 mg of ibuprofen per dose. Be seen for marked increase in persistent pain, repeated vomiting, associated fever. Medical Records Medical records reviewed: Yes I reviewed the patient's medical records Lab Data Lab results reviewed: Yes I reviewed the patient's lab results Labs: Lab Results 06/14/25 06/14/25 Range/Units 06:00 06:20 WBC 5.02 (4.50-11.00) K/uL RBC 4.46 (4.00-5.20) m/uL Hgb 13.0 (12.0-16.0) gm/dL Hct 39.4 (33.0-51.0) % MCV 88 (80-100) fL MCH 29 (26-34) pg MCHC 33 (32-36) gm/dL RDW Coeff of Jason 13.6 (11.5-15.5) % Plt Count 276 (140-440) K/uL Neut % (Auto) 52.9 (42.0-72.0) % Lymph % (Auto) 35.9 (20-44) % [place] % (Auto) 7.8 (0.0-11.0) % Eos % (Auto) 2.4 (0.0-7.0) % Baso % (Auto) 0.8 (0.0-3.0) % Neut # (Auto) 2.66 (1.7-7.0) K/uL Lymph # (Auto) 1.80 (0.90-2.90) K/uL [place] # (Auto) 0.40 (0.00-0.90) K/UL Eos # (Auto) 0.12 (0.00-0.50) K/uL Baso # (Auto) 0.04 (0.00-0.30) K/uL Abs Immat Gran (auto) 0.01 (0.00-0.30) K/uL Imm/Tot Granulo (auto) 0.2 % Sodium 139 (135-149) mmol/L Potassium 4.3 (3.6-5.1) mmol/L Chloride 106 (96-114) mmol/L Carbon Dioxide 27 (20-32) mmol/L Anion Gap 6 L (7-15) mEq/L BUN 18 (5-24) mg/dL Creatinine 0.7 (0.5-1.5) mg/dL Estimated Creat Clear 84.65 Estimated GFR 116 ml/min Glucose 98 (60-115) mg/dL Calcium 9.3 (8.4-10.6) mg/dL C-Reactive Protein < 0.5 L (0.5-1.0) mg/dL Urine Color Yellow (Yellow) Urine Appearance Clear (Clear) Urine pH 6.0 (5.0-8.5) Ur Specific [place] 1.015 (1.000-1.030) Urine Protein Negative (Negative) Urine Glucose (UA) Negative (Negative) Urine Ketones Negative (Negative) Urine Blood 3+ A (Negative) Urine Nitrite Negative (Negative) Urine Bilirubin Negative (Negative) Urine Urobilinogen 0.2 (0.2-1.0) Ur Leukocyte Esterase Negative (Negative) Urine RBC 50-100 A (0-2) Urine WBC 0-2 (0-5) Ur Squamous Epith Cells None (None-Few) Urine Bacteria None (None) Urine HCG, Qual Negative (Negative) Discharge Plan Discharge Clinical Impression: Hydronephrosis, Ureteral colic, Right nephrolithiasis Patient Disposition: Home w/ Parent or Adult Condition: Improved Additional Instructions: Stay well hydrated with water. May consider straining your urine over this next week. I am prescribing Flomax which can be helpful for ureteral spasm should this continue. Otherwise from [facility] a prescription of Percocet. Can take up to 800 mg of ibuprofen per dose. Be seen for marked increase in persistent pain, repeated vomiting, associated fever. Prescriptions: New tamsulosin [Flomax] 0.4 mg capsule 0.4 mg PO DAILY PRN (Reason: Ureteral spasm) Qty: 15 0RF Follow Up/Referrals: Provider,Not a Local [Primary Care Provider, Family Practice] Stand Alone Forms: [employer] Info Instructions
--- NOTE | 2025-06-14 06:15 | CRLHL7_ITS ---
For Patients: As a result of the Century Cures Act, medical imaging exams and procedure reports are released immediately into your electronic medical record. You may view this report before your referring provider. If you have questions, please contact your health care provider. INDICATION: Right flank pain TECHNIQUE: CT abdomen and pelvis without contrast. COMPARISON: None. FINDINGS: Lower chest: Unremarkable. Liver: Unremarkable. Gallbladder and bile ducts: Unremarkable. Pancreas: Unremarkable. Spleen: Unremarkable. Adrenal glands: Unremarkable. Kidneys: Mild right hydronephrosis and proximal hydroureter without visualized ureteral stone. There is mild right perinephric stranding and periureteric stranding. Nonobstructing nephrolith in the right kidney. No left hydronephrosis or hydroureter. GI tract: No obstruction. No evidence of significant bowel inflammation. Normal appendix. Vasculature: Abdominal aorta is normal in caliber. Lymph nodes: No lymphadenopathy. Peritoneum/Abdominal Wall: Tiny fat containing umbilical hernia. Pelvis: Unremarkable. Bones: Unremarkable for age. IMPRESSION: Mild right hydronephrosis and proximal hydroureter without visualized ureteral stone. This is most likely related to a recently passed stone. Infection can also have this appearance if symptoms are concerning. Please note that all CT scans at this facility use dose modulation, iterative reconstruction, and/or weight-based dosing when appropriate to reduce radiation dose to as low as reasonably achievable. Dictated by Agnieszka Canela MD @ 06/14/2025 7:18:49 AM (Electronically Signed)
[2025-06-14] MEDS: MORPHINE 4 MG/ML INJ IVP (06:18)
[2025-06-14 06:25] VITALS: O2SAT 98
[2025-06-14 06:27] LABS: Hematocrit 39.4 % (33.0-51.0); Hemoglobin* 13.0 gm/dL (12.0-16.0); Immature Granulocytes Abs Auto 0.01 K/uL (0.00-0.30); Immature Granulocytes Pct Auto 0.2 %; Lymphocytes Absolute Auto 1.80 K/uL (0.90-2.90); Mean Corpuscular HGB Conc 33 gm/dL (32-36); Mean Corpuscular Hemoglobin 29 pg (26-34); Mean Corpuscular Volume 88 fL (80-100); RDW Coefficient of Variation % 13.6 % (11.5-15.5); Red Blood Count 4.46 m/uL (4.00-5.20); White Blood Count* 5.02 K/uL (4.50-11.00)
[2025-06-14 06:32] LABS: Slide Review Reflex No
[2025-06-14 06:37] LABS: Chloride* 106 mmol/L (96-114); Sodium* 139 mmol/L (135-149)
[2025-06-14 06:38] LABS: Potassium* 4.3 mmol/L (3.6-5.1)
[2025-06-14 06:41] LABS: Anion Gap 6 mEq/L (7-15); Blood Urea Nitrogen* 18 mg/dL (5-24); Calcium* 9.3 mg/dL (8.4-10.6); Carbon Dioxide* 27 mmol/L (20-32); Creatinine* 0.7 mg/dL (0.5-1.5); Est. Creatinine Clearance* 84.65; Estimated Glomerular Filt Rate 116 ml/min; Glucose* 98 mg/dL (60-115)
[2025-06-14] MEDS: TAMSULOSIN HCL 0.4 MG CAPSULE PO (08:09)
== END 2025-06-14 08:25 | disposition home or self-care (01) ==
PROVIDERS: Emergency Provider Family Medicine
DX: N13.30 Unspecified hydronephrosis (principal); N20.2 Calculus of kidney with calculus of ureter
CPT/HCPCS: 36415; 74176; 80048; 81001; 81025; 85025; 86140; 94761; 96374; 96375; 99284; A9270; J1885; J2270; J7030